=== PATIENT | female | born 1945 | race Caucasian/White ===

== ENCOUNTER 2016-12-22 09:03 | Outpatient (CLI) | payer MEDICARE, OTHER ==
[~2016-12-22] VITALS: Ht 160 cm; Wt 80.9 kg
--- NOTE | ~2016-12-22 | OP ---
PATIENT NAME: KRISTI TORRES MEDICAL RECORD: [id number] :45 LOCATION:D.[facility] ADMISSION DATE: SURGEON: SALMA FERNANDES MD DATE OF OPERATION: 12/22/2016 DATE OF SERVICE: 12/22/2016 PROCEDURES: 1. Left heart catheterization. 2. Selective coronary angiography. 3. Left ventriculogram. INDICATION: Chest pain compatible with angina, coronary artery disease, previous coronary angioplasty. PROCEDURE: After informed consent was obtained and after detailed explanation of risks, benefits as well as alternative therapies, the patient elected to proceed with angiogram and angioplasty. The right radial area was prepped and draped in normal sterile fashion. The right radial artery was cannulated via modified Seldinger technique with placement of 6-Turkmen sheath. All catheters exchanged through this sheath. FINDINGS: Left ventriculogram was performed in the standard 30-degree HAILE view reveals good cardiac wall motion throughout all segments. Overall ejection fraction estimated 60%. SELECTIVE CORONARY ANGIOGRAPHY: 1. Left main showed no significant angiographic disease. 2. Left anterior descending has moderate irregularities, but no flow-limiting stenosis. 3. The left circumflex shows moderate irregularities, but no flow-limiting stenosis. 4. The right coronary has previously placed stent that is widely patent with no significant restenosis. No disease elsewise. OVERALL IMPRESSION: No significant restenosis of the previously placed stent. No disease elsewise. Continue medical management of the coronary artery disease and cardiac risk factors. TRANSINT:[id number] Voice Confirmation ID: [id number] DOCUMENT ID: [id number] SALMA FERNANDES MD CC: [id number] DICTATION DATE: 12/22/16 1352 EDGER TECHNICIAN: 12/22/16 2342 DEP CLI 12/22/16 [facility] [address] [place] [address]
--- NOTE | ~2016-12-22 | HEMODYNAMI ---
PATIENT:KRISTI TORRES MEDICAL RECORD: [id number] : 45 LOCATION:[facility] ADMISSION DATE: 12/22/16 Generatedon:12/22/201613:52 Patient name: KRISTI TORRES Patient #: [id number] SSN: : 1945 Date of study: 12/22/2016 Page: Of Hemodynamic Procedure Report Patient Data Patient Demographics Procedure consent was obtained First Name: KRISTI Gender: Female Last Name: MELISSA : 1945 [facility] Initial: LEAH Age: 71 year(s) Patient #: [id number] Race: Additional ID: [id number] Contact details Address: [address] State: [place] City: [place] Zip code: [address] Past Medical History Allergies Allergen Reaction Date Comments Reported Iodine 12/13/2015 Aspirin 12/13/2015 Admission Admission Data Admission Date: 12/22/2016 Admission Time: 9:03 Lab Results Lab Result Date: 12/22/2016 Lab Result Time: 0:00 Biochemistry Name Units Result Min Max BUN mg/dl 18 --(---*)-- 7 18 Creatinine mg/dl 0.7 --(*---)-- 0.6 1.3 CBC Name Units Result Min Max Hemoglobin g/dl 13 -*(----)-- 13.5 17.5 Procedure Procedure Types Cath Procedure Diagnostic Procedure LHC [facility] w/Coronaries Miscellaneous Procedures Moderate Sedation up to 30 minutes Procedure Description Procedure Date Procedure Date: 12/22/2016 Procedure Start Time: 13:39 Procedure End Time: 13:51 Procedure Staff Name Function Marcin Cheng MD Performing Physician Jose Delgado RT Scrub Alanna Trimble RN Nurse Eulogio Aguirre RT Monitor Procedure Data Cath Procedure Fluoroscopy Diagnostic fluoroscopy Total fluoroscopy Time: 0.7 time: 0.7 min min Contrast Material Contrast Material Type Amount (ml) Isovue 300 45 Entry Location Entry Primary Successful Side Size Upsize Upsize Entry Closure Lewis ccessful Closure Location (Fr) 1 (Fr) 2 (Fr) Remarks Device Remarks Radial Right 6 Fr Mechanical artery Short Compression Diagnostic catheters Device Type Used For End Catheter Placement Terumo 5Fr [place] 110cm LV Angiography catheter Procedure Complications No complications Procedure Medications Medication Administration Route Dosage Oxygen NC 2 l/min Heparin Flush Bag added to field 2 bags (1000units/500ml NS) Lidocaine 2% added to field 20 Radial Cocktail added to field 1 syringe (Verapomil 2mg/Nitro 400mcg/Heparin 1500units) Pepcid I.V. 20 mg Solumedrol I.V. 125 mg Versed I.V. 1 mg Fentanyl I.V. 50 mcg Versed I.V. 1 mg Fentanyl I.V. 50 mcg Versed I.V. 1 mg Fentanyl I.V. 50 mcg Versed I.V. 1 mg Fentanyl I.V. 50 mcg Radial Cocktail I.A. 1 syringe (Verapomil 2mg/Nitro 400mcg/Heparin 1500units) Fentanyl I.V. 50 mcg Hemodynamics Rest HGB: 13 (g/dl) Heart Rate: 66 (bpm) Snapshots Pre Cath Intra NCS Post Cath Vital Signs Time Heart Resp SPO2 NIBP (mmHg) Rhythm Pain Sedation Rate (ipm) (%) Status Level (bpm) 12:55:46 66 16 97 153/76(121) NSR 0 (11) 10(A) , No pain 13:00:08 67 15 98 157/80(130) NSR 0 (11) 10(A) , No pain 13:04:26 62 16 96 137/73(109) NSR 0 (11) 10(A) , No pain 13:08:42 62 19 98 127/65(103) NSR 0 (11) 10(A) , No pain 13:12:56 62 30 97 133/71(92) NSR 0 (11) 10(A) , No pain 13:17:14 63 17 97 125/68(89) NSR 0 (11) 10(A) , No pain 13:21:28 62 16 97 123/66(88) NSR 0 (11) 10(A) , No pain 13:25:44 65 17 97 120/65(85) NSR 0 (11) 10(A) , No pain 13:30:00 64 16 96 117/57(83) NSR 0 (11) 10(A) , No pain 13:34:16 63 16 97 95/58(75) NSR 0 (11) 10(A) , No pain 13:38:22 65 16 97 93/59(77) NSR 0 (11) 9(A) , No pain 13:42:28 62 15 95 108/60(83) NSR 0 (11) 9(A) , No pain 13:46:38 65 17 95 87/47(62) NSR 0 (11) 9(A) , No pain 13:49:46 65 17 92 88/51(62) NSR 0 (11) 9(A) , No pain Medications Time Medication Route Dose Verified Delivered Reason Notes Effectiveness by by 12:56:48 Oxygen NC 2 l/min Marcin Alanna Per Skylar Tirmble RN physician 12:56:56 Heparin Flush added 2 bags Marcinabdulaziz Burch used for Bag to Skylar Cheng MD procedure (1000units/500ml field NS) 12:57:04 Lidocaine 2% added 20ml Marcinabdulaziz Burch used for to vial Skylar Cheng MD procedure field 12:57:10 Radial Cocktail added 1 Marcin Marcin used for (Verapomil to syringe Skylar Cheng MD procedure 2mg/Nitro field 400mcg/Heparin 1500units) 13:10:30 Pepcid I.V. 20 mg Marcin Alanna Per Skylar Trimble RN physician 13:10:39 Solumedrol I.V. 125 mg Marcin Alanna Per Skylar Trimble RN physician 13:30:27 Versed I.V. 1 mg Marcin Alanna for sedation Skylar Trimble RN 13:30:34 Fentanyl I.V. 50 mcg Marcin Alanna for sedation Skylar Trimble RN 13:32:30 Versed I.V. 1 mg Marcin Alanna for sedation Skylar Trimble RN 13:32:35 Fentanyl I.V. 50 mcg Marcin Alanna for sedation Skylar Trimble RN 13:34:30 Versed I.V. 1 mg Marcin Alanna for sedation Skylar Trimble RN 13:34:36 Fentanyl I.V. 50 mcg Marcin Alanna for sedation Tauth MD Florissant RN 13:37:45 Versed I.V. 1 mg Marcin Alanna for sedation Skylar Trimble RN 13:37:48 Fentanyl I.V. 50 mcg Marcin Niecca for sedation Skylar Trmible RN 13:40:17 Fentanyl I.V. 50 mcg Marcin Alanna for sedation Skylar Trimble RN 13:44:05 Radial Cocktail I.A. 1 Marcin Burch for (Verapomil syringe Skylar Cheng MD vasodilation 2mg/Nitro 400mcg/Heparin 1500units) Procedure Log Time Note 12:33:49 ACC Patient presents with Stable Angina CCS Anginal Class 2--Slight limitation of ordinary activity. 12:33:51 Diagnostic Cath status Elective 12:33:53 Jose MORIN(R) sent for patient. Start room use. 12:33:55 Time tracking: Regular hours 12:34:00 Plan of Care:Hemodynamics will remain stable., Cardiac rhythm will remain stable., Comfort level will be maintained., Respiratory function will remain adequate., Patient/ family verbilizes understanding of procedure., Procedure tolerated without complication., Recovers from procedure without complications.. 12:49:23 Patient received from Pre/Post Procedure Room to [facility] 2 Alert and oriented. Tansferred to table in Supine position. 12:49:24 Warm blankets applied, and chen hugger turned on for patient comfort. 12:49:24 Correct patient and procedure confirmed by team. 12:49:26 Signed procedure consent form obtained from patient. 12:49:30 ECG and BP/O2 sat monitors applied to patient. 12:54:35 Vital chart was started 12:56:48 Oxygen 2 l/min NC was administered by Alanna Trimble RN; Per physician; 12:56:56 Heparin Flush Bag (1000units/500ml NS) 2 bags added to field was administered by Marcin Cheng MD; used for procedure; 12:57:04 Lidocaine 2% 20ml vial added to field was administered by Marcin Cheng MD; used for procedure; 12:57:10 Radial Cocktail (Verapomil 2mg/Nitro 400mcg/Heparin 1500units) 1 syringe added to field was administered by Marcin Cheng MD; used for procedure; 13:00:05 Baseline sample Acquired. 13:00:09 Rhythm: sinus rhythm 13:00:10 Full Disclosure recording started 13:01:49 H&P Date Dictated: 12/20/2016 Within 30 days and on chart., H&P Addendum completed by physician on day of procedure. (MUST COMPLETE FOR ALL OUTPATIENTS). 13:01:50 Pre-procedure instructions explained to patient. 13:01:51 Pre-op teaching completed and patient verbalized understanding. 13:01:53 Family in waiting room. 13:07:59 Is the patient allergic to Iodine/contrast media? Yes. 13:08:04 Was the patient premedicated? Yes 13:08:08 Is patient on blood thinner?No 13:08:21 Patient diabetic? No. 13:08:22 ----Pre-sedation anethsthesia assessment.---- 13:08:25 Previous problem with sedation/anesthesia? No ? 13:08:27 Snore? Yes 13:08:28 Sleep apnea? No 13:08:29 Deviated septum? No 13:08:30 Opens mouth fully? Yes 13:08:32 Sticks out tongue? Yes 13:08:35 Airway obstruction? No ? 13:08:39 Dentures? Yes in tight 13:08:43 Pre procedure: right dorsailis pedis pulse 1+ Palpable, but thready & weak; easily obliterated 13:08:57 Modified Miguelangel's test Ulnar < 7 seconds 13:10:30 Pepcid 20 mg I.V. was administered by Alanna Trimble RN; Per physician; 13:10:39 Solumedrol 125 mg I.V. was administered by Alanna Trimble RN; Per physician; 13:12:40 Patient pain scale 0/10 ?. 13:12:45 IV patent on arrival in left hand with 0.9% NaCl at 10ml/hr. 13:13:18 Patient NPO since Midnight. 13:14:10 Lab Result : BUN 18 mg/dl 13:14:10 Lab Result : Creatinine 0.7 mg/dl 13:14:10 Lab Result : Hemoglobin 13 g/dl 13:14:13 Lab results completed and on chart. 13:14:16 Right Radial & Right Groin area was prepped with chlora-prep and draped in sterile fashion 13:14:17 Alarms reviewed by RIsabela N. 13:14:17 Sharps counted by scrub and verified by R.N. 13:28:05 Zero performed for pressure channel P1 13::27 Use device set Radial Dx 13::28 Acist Syringe opened to sterile field. 13::28 Medline Cath Pack opened to sterile field. 13:28:28 Bag Decanter opened to sterile field. 13:28:29 Terumo 6Fr Slender Glidesheath opened to sterile field. 13:28:30 St Jarred 260cm J .035 wire opened to sterile field. 13:28:30 Acist Hand Control opened to sterile field. 13:28:30 Acist Manifold opened to sterile field. 13:28:31 Tegaderm 4 x 4 opened to sterile field. 13::31 MBrace Wrist Support opened to sterile field. 13:30:14 --------ALL STOP TIME OUT------ 13:30:14 Final Timeout: patient, procedure, and site verified with staff and physician. All members of the team are in agreement. 13:30:16 Right Radial & Right Groin site verified by team. 13:30:18 Physical assessment completed. ASA score P 2 - A patient with mild systemic disease as per Marcin Cheng MD. 13:30:22 Sedation plan: IV Moderate Sedation Versed, Fentanyl 13:30:27 Versed 1 mg I.V. was administered by Alanna Trimble RN; for sedation; 13:30:34 Fentanyl 50 mcg I.V. was administered by Alanna Trimble RN; for sedation; 13:32:30 Versed 1 mg I.V. was administered by Alanna Trimble RN; for sedation; 13:32:35 Fentanyl 50 mcg I.V. was administered by Alanna Trimble RN; for sedation; 13:34:30 Versed 1 mg I.V. was administered by Alanna Trimble RN; for sedation; 13:34:36 Fentanyl 50 mcg I.V. was administered by Alanna Trimble RN; for sedation; 13:37:45 Versed 1 mg I.V. was administered by Alanna Trimble RN; for sedation; 13:37:48 Fentanyl 50 mcg I.V. was administered by Alanna Trimble RN; for sedation; 13:39:10 Procedure started. 13:39:24 Local anesthetic to right radial artery with Lidocaine 2% by Marcin Cheng MD.INITIAL ACCESS ONLY 13:40:17 Fentanyl 50 mcg I.V. was administered by Alanna Trimble RN; for sedation; 13:40:54 A 6 Fr Short sheath was inserted into the Right Radial artery 13:44:02 A Terumo 5Fr [place] 110cm catheter was advanced over the wire and used for LV Angiography. 13:44:05 Radial Cocktail (Verapomil 2mg/Nitro 400mcg/Heparin 1500units) 1 syringe I.A. was administered by Marcin Cheng MD; for vasodilation; 13:44:05 LV angiography performed. 13:44:07 LV gram done using HAILE 13:44:10 Injector settings: Ml/sec: 7, Volume: 15, 13:45:00 EF : 60 % 13:45:07 LCA angiography performed. 13:46:04 RCA angiography performed. 13:46:05 Catheter removed. 13:46:12 Contrast amount:Isovue 300 45ml. 13:46:20 Terumo TR Band Standard opened to sterile field. 13:48:48 Sheath removed intact; hemostasis achieved with Mechanical Compression to the Right Radial artery. 13:48:50 Procedure ended.(Physican Out) 13:48:54 Fluoroscopy time 00.70 minutes. 13:49:08 Sharps counted by scrub and verified by R.N. 13:49:10 TR band inflated with 12cc of air. 13:49:11 Insertion/operative site no bleeding no hematoma. 13:49:16 Post right radial artery:stable, clean and dry 13:49:25 Post Procedure Pulses reassessed and unchanged 13:49:28 Post-procedure physical assessment completed. ASA score P 2 - A patient with mild systemic disease as per Marcin Cheng MD. 13:49:31 Post procedure rhythm: unchanged. 13:50:05 Post procedure instruction explained to patient.Patient verbalizes understanding. 13:50:24 Procedure and supply charges have been captured, reviewed, submitted and are correct. 13:50:37 Procedure type changed to Cath procedure, Diagnostic procedure, LHC, LHC w/Coronaries, Miscellaneous Procedures, Moderate Sedation up to 30 minutes 13:51:07 Procedure Complication : No complications 13:51:09 Vital chart was stopped 13:51:09 See physician's report for complete and final results. 13:51:11 Report given to Pre/Post Procedure Room. 13:51:14 Patient transfered to Pre/Post Procedure Room with Stretcher. 13:51:16 Procedure ended. 13:51:16 Full Disclosure recording stopped 13:51:19 End room use (Document Last) Device Usage Item Name Manufacture Quantity Catalog Hospital Part Current Minimal Lot# / Number Charge Number Stock Stock Serial# Code Acist Acist 1 [id number] [id number] [id number] 080825 20 Syringe Medical [employer] Inc Medline Cardinal 1 [id number] 825177 84395 759692 5 Cath Pack Health Bag Microtek 1 2002S 347377 41856 738193 5 Decanter Medical Inc. Terumo 6Fr Terumo 1 [id number] 759401 249475 930255 [address] St Jarred 1 228494 460242 455648 165811 30 260cm J .035 wire Acist Hand Acist 1 64336 076655 915859 978391 5 Control Medical Systems Inc Acist Acist 1 53100 981950 244204 317775 5 Manifold Medical Systems Inc Tegaderm 4 3M 1 1626W 299629 271183 726679 5 x 4 MBrace Advanced 1 140-0250-00 455595 93772 925772 5 Wrist Vascular Support Dynamics Terumo 5Fr Terumo 1 40-4445 125707 529010 903545 5 [place] 110cm catheter Terumo TR Terumo 1 [id number] 045088 156480 878425 40 Band Standard Signature Audit [place] Stage Time Signature Unsigned Intra-Procedure 12/22/2016 Eulogio Aguirre 1:52:00 PM RT(R) Signatures Monitor : Eulogio Aguirre RT Signature : Date : Time : [facility] [address] [facility] [place] [address]
[~2016-12-22 09:03] MED LIST: ALEVE220 MG PO; BAYER CHEWABLE81 MG PO; CARDIZEM CD180 MG PO; CARDIZEM LA180 MG PO; CORDARONE200 MG PO; COZAAR100 MG PO; COZAAR25 MG; COZAAR50 MG PO; FEXOFENADINE H180 MG PO; FLAXSEED OIL1000 MG; FLAXSEED OIL1000 MG PO; FUROSEMIDE20 MG PO; IPRAT-ALBUT 0.5-3 ML UPD; LEVAQUIN500 MG PO; PEPCID40 MG PO; PLAVIX75 MG PO; PREDNISONE20 MG PO; PULMICORT0.5 MG/21 UPD; SINGULAIR10 MG PO; TOPROL XL25 MG; TOPROL XL25 MG PO; ULTRAM50 MG PO
[2016-12-22] MEDS ORDERED: LEVOTHYROXINE112 MCG PO (10:13)
[2016-12-22 10:23] VITALS: BP 157/53; Ht 160 cm; Wt 80.9 kg
[2016-12-22 11:01] LABS: BASOPHILS 0.4 % (0-2); EOSINOPHILS 4.5 % (0-7); HEMATOCRIT 41.1 % (36.0-48.0); IMMATURE GRANULOCYTES 1.1 % (0-5); LYMPHOCYTES 22.3 % (15-50); MCH 27.8 pg (26.0-34.0); MCHC 31.6 g/dL (31.0-37.0); MEAN PLATELET VOLUME 11.4 fL (7.4-10.4); MONOCYTES 12.6 % (2-11); NEUTROPHILS 59.1 % (40-80); RBC 4.67 10x6/uL (4.00-5.40); RDW 14.5 % (11.5-14.5); WBC 8.5 10x3/uL (4.8-10.8)
[2016-12-22 11:02] LABS: PLATELET COUNT 217 10x3/uL (130-400)
[2016-12-22 11:18] LABS: CALC OSMOLALITY 282 mosm/kg (275-300); CALCIUM 8.9 mg/dL (8.5-10.1); CARBON DIOXIDE 30.4 mmol/L (21.0-32.0); CHLORIDE - SERUM 107 mmol/L (98-107); CREATININE - SERUM 0.7 mg/dL (0.6-1.3); GLUCOSE 99 mg/dL (74-106); POTASSIUM - SERUM 3.6 mmol/L (3.5-5.1); SODIUM 141 mmol/L (136-145); UREA NITROGEN 18 mg/dL (7-18); eGFR NON AFRICAN AMERICAN 87 mL/min (90-120)
--- NOTE | 2016-12-22 14:00 | NUR ---
1400 RECIEVED TO ROOM VIA STRETCHER FROM [employer] WITH NO DISTRESS NOTED. TR BAND TO R/WRIST CDI NO BLEEDING NO HEMATOMA NOTED. VSS WITH BP TO CYCLE Q 15. FAMILY AT SIDE NSR RATE 64 CHEST PAIN DENIED
== END 2016-12-22 16:15 | disposition home or self-care (01) ==
LOC: D.CATH 09:03
PROVIDERS: Internal Medicine Interventional Cardiology
DX: I25.119 Atherosclerotic heart disease of native coronary artery with unspecified angina pectoris (principal); I48.0 Paroxysmal atrial fibrillation; I10 Essential (primary) hypertension; I08.0 Rheumatic disorders of both mitral and aortic valves; F17.200 Nicotine dependence, unspecified, uncomplicated; Z01.812 Encounter for preprocedural laboratory examination

== ENCOUNTER → 2017-02-07 10:11 | Day surgery (SDC) | payer MEDICARE, OTHER ==
[~2017-02-07] VITALS: Ht 160 cm; Wt 80.0 kg
[~2017-02-07 10:11] MED LIST changes: +AMOXICILLIN500 M1 PO; +LEVOTHYROXINE112 MCG PO; +PULMICORT0.5 MG/21 INH; +XOPENEX HFA15 GM INH
[2017-02-07 10:54] LABS: BASOPHILS 0.2 % (0-2); EOSINOPHILS 1.4 % (0-7); HEMATOCRIT 46.5 % (36.0-48.0); IMMATURE GRANULOCYTES 0.7 % (0-5); MCH 28.4 pg (26.0-34.0); MCHC 32.3 g/dL (31.0-37.0); MCV 87.9 fL (80.0-100.0); MONOCYTES 11.6 % (2-11); NEUTROPHILS 64.1 % (40-80); PLATELET COUNT 237 10x3/uL (130-400); RBC 5.29 10x6/uL (4.00-5.40); RDW 14.8 % (11.5-14.5); WBC 9.2 10x3/uL (4.8-10.8)
[2017-02-07 10:59] VITALS: BP 154/71; Ht 160 cm; Wt 80.0 kg
--- NOTE | 2017-02-07 14:33 | NUR ---
1348-PT ESCORTED OUT BY VOLUNTEER.
== END | disposition home or self-care (01) ==
LOC: D.OPS 10:11
PROVIDERS: Anesthesiology
DX: R10.13 Epigastric pain (principal); R12 Heartburn; K21.0 Gastro-esophageal reflux disease with esophagitis; I10 Essential (primary) hypertension; R19.4 Change in bowel habit; Z01.812 Encounter for preprocedural laboratory examination

== ENCOUNTER → 2017-02-12 08:09 | Outpatient (CLI) | payer MEDICARE, OTHER ==
[2017-02-07 10:59] VITALS: BMI 31.2
== END | disposition home or self-care (01) ==
LOC: D.RAD 08:09
DX: R93.5 Abnormal findings on diagnostic imaging of other abdominal regions, including retroperitoneum (principal)

== ENCOUNTER 2017-02-26 11:09 | Day surgery (SDC) | payer MEDICARE, OTHER ==
[~2017-02-26] VITALS: Ht 160 cm; Wt 77.7 kg
--- NOTE | ~2017-02-26 | OP ---
PATIENT NAME: KRISTI TORRES MEDICAL RECORD: [id number] :45 LOCATION:[facility] ADMISSION DATE: SURGEON: YOLIS KRISHNAN DO OPERATION DATE: 02/26/17 PROCEDURE: Colonoscopy with polypectomy and hemostasis as well as submucosal injection. INDICATIONS FOR PROCEDURE: History of colon polyps, change in bowel habits and generalized abdominal pain. SCOPE: Olympus video pediatric colonoscope. MEDICATIONS: Propofol 800 milligrams IV per anesthesia. WITHDRAWAL TIME: Greater than 30 minutes. ESTIMATED BLOOD LOSS: Less than 3 milliliters. COMPLICATIONS: None. FINDINGS: Informed consent was given. The patient was made comfortable with the above medication. After reaching an adequate level of sedation by slow IV push, the patient was placed on her left side. A digital rectal examination was performed and was normal. The endoscope was then advanced under direct visualization through the rectum to the cecum with visualization of the appendiceal orifice and neoterminal ileum where an anastomosis is. The scope was slowly withdrawn, and the mucosa was carefully examined. There were multiple polyps found on this examination and they were not all removed due to the significant amount of time spent removing what polyps could be taken at this time. In the cecum there were two polyps which were benign appearing and sessile. They measured approximately 3-5 millimeters in diameter. They were both removed with hot forceps. One of these sites was not stopping bleeding on its own so a single Endoclip was placed for hemostasis successfully. In the ascending colon there were three separate polyps. Two were benign and sessile appearing and measuring approximately 5 millimeters in diameter. They were both removed with hot forceps successfully. The final polyp was removed with a hot snare. It was a larger polyp which measured approximately 8 millimeters in size. One of these sites also required hemostasis with placement of a Hemoclip. This was done successfully. In the transverse colon there were two separate polyps. One was a smaller polyp measuring approximately 6 millimeters in size which was removed with hot forceps. The other polyp was a larger polyp measuring approximately 8 millimeters in size. It was removed with a hot snare. At this point, the procedure had been ongoing for 45 minutes or greater. Due to patient safety the procedure was terminated. She will be brought back for the remainder of her colonoscopy with polyp removal. Some of these polyps that were located in the transverse colon may be big enough that they will require further treatment outside of endoscopic therapy. This will be evaluated within the next one to two months when the patient returns. Tattoo was placed at approximately 60 centimeters where the extent of the procedure was terminated. IMPRESSIONS: 1. Multiple polyps as described above removed with various methods. 2. Incomplete removal of polyps at this time. PLAN/RECOMMENDATIONS: OPERATIVE REPORT [id number] KRISTI TORRES 1. Discharge home when recovery parameters are met. 2. Continue current medications. 3. Continue current diet. 4. Will schedule a follow up within one to two months for further removal of polyps. 5. The patient must stay off of all anti-inflammatories and blood thinning medications or anti-platelets for seven days for the next procedure. YOLIS KRISHNAN DO CC: [id number] DICTATION DATE: 02/26/17 1500 PERSONAL INJURY LAW SPECIALIST: HOMRE 02/27/17 1212 [facility] 02/26/17 [facility] [address] [place] [address]
[2017-02-26] MEDS ORDERED: PROTONIX40 MG PO (12:43)
[2017-02-26 12:54] VITALS: BP 107/51; Ht 160 cm; Wt 77.7 kg
[2017-02-26 13:21] LABS: BASOPHILS 0.2 % (0-2); EOSINOPHILS 0.4 % (0-7); HEMATOCRIT 45.8 % (36.0-48.0); HEMOGLOBIN 14.5 g/dL (12-16); IMMATURE GRANULOCYTES 0.6 % (0-5); LYMPHOCYTES 18.9 % (15-50); MCHC 31.7 g/dL (31.0-37.0); MCV 88.6 fL (80.0-100.0); MEAN PLATELET VOLUME 11.4 fL (7.4-10.4); MONOCYTES 10.2 % (2-11); NEUTROPHILS 69.7 % (40-80); PLATELET COUNT 190 10x3/uL (130-400); RBC 5.17 10x6/uL (4.00-5.40); RDW 15.2 % (11.5-14.5); WBC 9.3 10x3/uL (4.8-10.8)
[2017-02-26 13:38] LABS: CALC OSMOLALITY 275 mosm/kg (275-300); CALCIUM 9.2 mg/dL (8.5-10.1); CARBON DIOXIDE 24.1 mmol/L (21.0-32.0); CHLORIDE - SERUM 103 mmol/L (98-107); CREATININE - SERUM 0.8 mg/dL (0.6-1.3); GLUCOSE 83 mg/dL (74-106); POTASSIUM - SERUM 4.6 mmol/L (3.5-5.1); SODIUM 140 mmol/L (136-145); UREA NITROGEN 7 mg/dL (7-18); eGFR NON AFRICAN AMERICAN 75 mL/min (90-120)
--- NOTE | 2017-02-26 17:24 | NUR ---
1715 FULL LIQUID TRAY PROVIDED
--- NOTE | 2017-02-26 17:59 | NUR ---
1745 PIV DC W/CATHETER TIP INTACT TO WELL 1800 PT ESCORTED VIA WC OUT TO [facility] W/DAUGHTER DRIVING
== END 2017-02-26 18:00 | disposition home or self-care (01) ==
LOC: D.OPS 11:09
PROVIDERS: Anesthesiology
DX: K63.5 Polyp of colon (principal); D12.2 Benign neoplasm of ascending colon; D12.3 Benign neoplasm of transverse colon; Z86.010 Personal history of colon polyps; Z01.812 Encounter for preprocedural laboratory examination

== ENCOUNTER 2017-04-23 06:14 | Day surgery (SDC) | payer MEDICARE, OTHER ==
[~2017-04-23] VITALS: Ht 160 cm; Wt 78.2 kg
[~2017-04-23 06:14] MED LIST changes: +PROTONIX40 MG PO
[2017-04-23 07:09] LABS: HEMATOCRIT 41.7 % (36.0-48.0); HEMOGLOBIN 13.6 g/dL (12-16); MCH 28.6 pg (26.0-34.0); MCHC 32.6 g/dL (31.0-37.0); MCV 87.8 fL (80.0-100.0); MEAN PLATELET VOLUME 10.6 fL (7.4-10.4); RBC 4.75 10x6/uL (4.00-5.40); RDW 16.2 % (11.5-14.5); WBC 9.5 10x3/uL (4.8-10.8)
[2017-04-23 07:10] VITALS: BP 132/70; Ht 160 cm; Wt 78.2 kg
--- NOTE | 2017-04-24 07:19 | OP ---
PATIENT NAME: KRISTI TORRES MEDICAL RECORD: [id number] :45 LOCATION:[facility] ADMISSION DATE: SURGEON: YOLIS KRISHNAN DO DATE OF OPERATION: 04/23/2017 PROCEDURE: Colonoscopy with polypectomy. INDICATIONS FOR PROCEDURE: History of colon polyps, last procedure was performed in February of 2017 with multiple polyps removed and residual polyps left behind. SCOPE: Olympus video pediatric colonoscope. MEDICATIONS: Propofol 550 mg IV per anesthesia. WITHDRAWAL TIME: 23 minutes. ESTIMATED BLOOD LOSS: Minimal. COMPLICATIONS: None. FINDINGS: Informed consent was given. The patient was made comfortable with the above medication. After reaching an adequate level of sedation by slow IV push, the patient was placed on her left side. A digital rectal examination was performed and was normal. The endoscope was then advanced under direct visualization through the rectum to the cecum and neoterminal ileum where an anastomosis is present. The scope was slowly withdrawn and mucosa was carefully examined. In the cecal region, there were 3 separate polyps which were small and benign-appearing. They measured approximately 2-4 mm in diameter. They were all removed using hot forceps in 1 piece and completely retrieved. In the transverse colon, there were four separate polyps, 2 were smaller, measuring approximately 3-6 mm in diameter. They were removed using a hot snare in 1 piece and completely retrieved. There were 2 larger polyps measuring approximately a centimeter in size a piece. The first polyp was biopsied with hot forceps and removed in piecemeal resection with ablation of the remaining tissue. The second polyp was lifted in EMR fashion using a saline pillow with a hot snare with removal in piecemeal fashion. There are tattoo markings by both of these polyps for future reference. This was placed on the previous procedure. In the descending colon, there was a single polyp measuring approximately 9 mm in size. It was lifted in EMR fashion and removed using a hot snare. In the rectosigmoid junction, there was a single benign-appearing polyp measuring approximately 8 mm in size. It was removed using hot snare in 1 piece and completely retrieved. Retroflexion was performed in the rectum with normal appearance. The endoscope was then withdrawn from the patient. The patient tolerated the procedure well and there were no complications. IMPRESSION: Multiple polyps as described above removed with various methods. PLAN AND RECOMMENDATIONS: 1. Discharge home when recovery parameters are met. 2. Continue current diet and medications. 3. Follow up biopsy specimen results. 4. Anticipate a recall colonoscopy in 6 months for inspection for any residual tissue of the polyps removed today. After that procedure, the interval can likely be widened out to 2-3 years, if there is no residual tissue. OPERATIVE REPORT [id number] KRISTI TORRES TRANSINT:[id number] Voice Confirmation ID: [id number] DOCUMENT ID: [id number] YOLIS KRISHNAN DO at 0719 CC: [id number] DICTATION DATE: 04/23/17921 TRAINING COORDINATOR: 04/23/17 1516 [facility] 04/23/17 [facility] [address] [place] [address]
== END 2017-04-23 10:30 | disposition home or self-care (01) ==
LOC: D.OPS 06:14
PROVIDERS: Anesthesiology
DX: D12.0 Benign neoplasm of cecum (principal); D12.3 Benign neoplasm of transverse colon; D12.4 Benign neoplasm of descending colon; D12.7 Benign neoplasm of rectosigmoid junction; F17.200 Nicotine dependence, unspecified, uncomplicated; I25.10 Atherosclerotic heart disease of native coronary artery without angina pectoris; E03.9 Hypothyroidism, unspecified; J44.9 Chronic obstructive pulmonary disease, unspecified; I11.0 Hypertensive heart disease with heart failure; I50.9 Heart failure, unspecified

== ENCOUNTER 2017-09-10 17:38 | Inpatient (IN) | payer MEDICARE, OTHER ==
[~2017-09-10] VITALS: Ht 160 cm; Wt 83.6 kg
--- NOTE | ~2017-09-10 | OP ---
PATIENT NAME: KRISTI TORRES MEDICAL RECORD: [id number] :45 LOCATION:D.M2 D.2106 ADMISSION DATE:09/12/17 SURGEON: GILMER SIDDIQUI MD DATE OF OPERATION: 09/13/2017 SURGEON: Gilmer Siddiqui MD ANESTHESIA: General anesthesia by Judy Cui CRNA PREOPERATIVE DIAGNOSIS: Left proximal ureteral 1.3-cm stone with staghorn calculus in the left lower pole of the kidney. PROCEDURES: Cystoscopy, left percutaneous nephrolithotomy, left ureteroscopy, and stone extraction. FINDINGS: Radiodense renal stones. One large stone in the midureter. She has narrow infundibula which make entry in the calices difficult to impossible. SPECIMENS: Left ureteral 1.3-cm stone. COMPLICATIONS: None. BLOOD LOSS: Minimal. CLINICAL HISTORY: This is a 72-year-old female who came to the hospital with ongoing abdominal pain with nausea. On CT scan, she was found to have a 1.3-cm proximal ureteral stone causing hydronephrosis. She was also found to have a partial staghorn calculus which fills up a lot of the left lower pole bryn. There were some punctate stones on the right side which were nonobstructive. Her daughter has a kidney stone history also. The daughter has had PCNL in the past at [facility] to remove her kidney stones. The patient has not previously had symptomatic kidney stones. Because of the size of the stones, she was to have a percutaneous nephrolithotomy. Today, Dr. Newton tried to place an access into the lower pole of the left kidney through the stone collection and then down into the ureter for the access. However, because she does not have hydronephrosis now and she has very tight infundibula, he was unable to get the lower pole access. Therefore, a mid pole access was provided. I explained the situation to her daughter. I told her that I could get the ureteral stone today, but I was not certain that I could get the lower pole stones through this access. The patient already has cefepime IV from interventional radiology and therefore we did not give her any further antibiotics. PROCEDURE: The patient was in supine position. She was given general anesthetic on the stretcher. We put her legs in frogleg position and prepped her vaginally. A cystoscope was placed and the distal end of the nephroureteral access stent that had been placed by Dr. Newton was pulled out using grasping forceps so that it exited the urethra. This will allow our access wire to be clamped with a hemostat to prevent loss of access. Once the cystoscopy was performed, a Copeland catheter was inserted and put to bag drainage. The patient was then turned into the prone position on the Carmelo frame. All pressure points were padded. She was prepped and draped. Through the lumen of the nephroureteral catheter, we inserted an Amplatz Super Stiff wire. This was pushed down until it exited through the urethra between the legs. At this point, the circulating nurse put a hemostat on it. This prevented the wire from migrating backwards. The nephroureteral tube was removed completely and OPERATIVE REPORT [id number] KRISTI TORRES discarded. A dual lumen catheter was then inserted over the Super Stiff wire and placed into the proximal ureter. A second wire, which was a Sensor wire, was placed through the second lumen of the dual lumen catheter. This was put down into the bladder. Once it was in correct position, the dual lumen catheter was removed, leaving the wires in place. We clamped the Sensor wire to the drapes as it would act as our safety wire. We worked over the Super Stiff wire. A 1-cm incision was made on either side of the wire using a #15 blade. We then inserted the NephroMax balloon dilator. Under radiographic guidance, we put it down into the level of the renal pelvis. The balloon was then inflated with 20 atmospheres of pressure and then the working sheath, which is 30-Niuean in circumference, was placed over the balloon into the renal pelvis. The balloon was then completely deflated and removed entirely. We then put our scope down. Under fluoroscopy to identify the stone location, I tried to identify the infundibulum to the lower pole bryn. However, it was very difficult to find this entrance; and when I found a potential candidate, I could not get through it. I then placed the scope down the proximal ureter. We could not get down to the point at which the stone was lodged. We then switched to the flexible ureteroscope. This was actually the flexible cystoscope which we used for the proximal ureter as the renal pelvis and proximal ureter are hydronephrotic. This allowed us to go right down to the stone, which was lodged in the proximal ureter. We tried baskets of 1.9-Niuean, also the Kole device, and the Piranha graspers. None of these items were able to dislodge the stone. Finally, we put a 3-Niuean 0-tip basket distal to the stone. We then opened the basket and finally we were able to trap the stone within the wires of the basket. We closed the basket and we were able to entirely remove the ureteral stone. We repeated the ureteroscopy and no further stone material was seen in that area of the ureter. She did not have any further stones on CT either. I again tried with the flexible scope and the rigid nephroscope to try to find the infundibulum to the lower pole byrn, which contained a staghorn calculus, but again this was unsuccessful. We will have to bring her back on another day to remove the lower pole collection with a direct access into the lower pole. At this point, the scope was removed. Through the working sheath, we inserted a 24-Niuean Malecot nephrostomy tube. Once the Malecot was seen to be in the renal pelvis by fluoroscopic guidance, the safety wire was entirely removed. The working sheath was removed entirely. The Amplatz Super Stiff wire was entirely removed by having the circulating nurse pull the wire distally out through the urethra. The nephrostomy tube was sutured to the skin using a 2-0 nylon for a drain stitch. It was then put to bag drainage. Dressings of 4 x 4 gauze, an ABD pad, and tape were applied. The patient was awakened and brought to the recovery room. TRANSINT:[id number] Voice Confirmation ID: [id number] DOCUMENT ID: [id number] GILMER SIDDIQUI MD at 1634 CC: [id number] DICTATION DATE: 09/13/17 1308 ESTATE PLANNING ATTORNEY: 09/13/17 1402 ADM IN [facility] [address] [place] [address]
--- NOTE | ~2017-09-10 | HEMODYNAMI ---
PATIENT:KRISTI TORRES MEDICAL RECORD: [id number] : 45 LOCATION:[facility] D.2106 ADMISSION DATE: 09/12/17 Generatedon:09/13/20179:51 Patient name: KRISTI TORRES Patient #: [id number] SSN: : 1945 Date of study: 09/13/2017 Page: Of Hemodynamic Procedure Report Patient Data Patient Demographics Procedure consent was obtained First Name: KRISTI Gender: Female Last Name: MELISSA : 1945 [facility] Initial: LEAH Age: 72 year(s) Patient #: [id number] Race: Additional ID: [id number] Contact details Address: [address] State: [place] City: [place] Zip code: [address] Past Medical History Allergies Allergen Reaction Date Comments Reported Iodine 12/13/2015 Aspirin 12/13/2015 Admission Admission Data Admission Date: 09/12/2017 Admission Time: 16:24 Room #: 2106 Weight (lbs.): 177 Weight (kg.): 80.29 Procedure Procedure Types Cath Procedure Peripheral Cath Diagnostic Procedure Cath Peripheral Nephro Nephrostomy Tubes Procedure Description Procedure Date Procedure Date: 09/13/2017 Procedure Start Time: 8:41 Procedure Staff Name Function Patricia Wood RT Monitor Carlos Grier RT Scrub Yamel Samaniego RN Nurse Patricia Wood RT Bean Sprout Grower Eduardo Newton MD Performing Physician Procedure Data Cath Procedure Fluoroscopy Diagnostic fluoroscopy Total fluoroscopy Time: time: 16.8 min 16.8 min Diagnostic fluoroscopy Total fluoroscopy dose: 579 dose: 579 mGy mGy Contrast Material Contrast Material Type Amount (ml) Isovue 300 85 Procedure Medications Medication Administration Route Dosage Oxygen NC 3 l/min Lidocaine 1% added to field 20 Heparin Flush Bag added to field 1 bags (1000units/500ml NS) Benadryl I.V. 50 mg Solumedrol I.V. 125 mg Versed I.V. 1 mg Fentanyl I.V. 50 mcg Fentanyl I.V. 50 mcg Versed I.V. 1 mg Fentanyl I.V. 25 mcg Versed I.V. 0.5 mg Versed I.V. 0.5 mg Fentanyl I.V. 25 mcg unlisted medication 1 Hemodynamics Rest Heart Rate: 63 (bpm) Snapshots Pre Cath Intra NCS Post Cath Vital Signs Time Heart Resp SPO2 etCO2 NIBP (mmHg) Rhythm Pain Sedation Rate (ipm) (%) (mmHg) Status Level (bpm) 8:24:07 64 13 91 0 172/86(138) NSR 0 (11) 10(A) , No pain 8:28:15 73 17 96 46.3 140/89(133) NSR 0 (11) 10(A) , No pain 8:32:31 61 13 96 45.6 160/85(136) NSR 0 (11) 10(A) , No pain 8:36:53 61 14 100 46.3 152/76(126) NSR 0 (11) 10(A) , No pain 8:41:15 59 12 100 48.5 148/77(122) NSR 0 (11) 10(A) , No pain 8:45:33 57 12 100 50.8 127/76(96) NSR 0 (11) 10(A) , No pain 8:49:49 56 9 98 47.8 119/68(95) NSR 0 (11) 10(A) , No pain 8:53:55 57 9 98 49.3 116/66(96) NSR 0 (11) 10(A) , No pain 8:58:03 57 14 99 41.9 109/67(78) NSR 0 (11) 10(A) , No pain 9:02:13 57 13 100 48.5 122/64(99) NSR 0 (11) 10(A) , No pain 9:06:29 58 14 93 51.5 116/60(88) NSR 0 (11) 10(A) , No pain 9:10:39 60 9 93 69.5 125/70(96) NSR 0 (11) 10(A) , No pain 9:14:49 59 8 96 74 111/81(98) NSR 0 (11) 10(A) , No pain 9:18:56 58 15 93 50.8 102/69(85) NSR 0 (11) 10(A) , No pain 9:23:06 56 29 98 59.8 109/57(84) NSR 0 (11) 10(A) , No pain 9:27:16 55 15 98 56.1 102/62(78) NSR 0 (11) 10(A) , No pain 9:31:26 54 50 99 51.6 104/55(84) NSR 0 (11) 10(A) , No pain 9:35:36 55 27 98 51.6 112/60(88) NSR 0 (11) 10(A) , No pain 9:40:35 61 10 100 44.1 Measuring NSR 0 (11) 10(A) , No pain 9:40:37 61 10 100 44.1 130/76(104) NSR 0 (11) 10(A) , No pain 9:44:41 60 26 100 47.1 118/81(111) NSR 0 (11) 10(A) , No pain 9:48:55 58 39 100 43.3 136/62(99) NSR 0 (11) 10(A) , No pain Medications Time Medication Route Dose Verified Delivered Reason Notes Effec tiveness by by 8:17:30 Oxygen NC 3 Yamel Yamel used for l/min Aden Samaniego chief ophthalmic technician RN 8:17:49 Lidocaine 1% added 20ml Yamel Eduardo for local to vial Aden Newton MD anesthetic field RN 8:18:13 Heparin Flush added 1 Yamel Eduardo used for Bag to bags Aden Newton MD procedure (1000units/500ml field RN NS) 8:27:37 Benadryl I.V. 50 mg Aden Pierre RN, MD 8:27:46 Solumedrol I.V. 125 Eduardo Yamel mg Aden Newton RN, MD 8:46:07 Versed I.V. 1 mg Eduardo Montesinos for Aden Newton RN sedation 8:46:18 Fentanyl I.V. 50 Eduardo Montesinos for mcg Aden Newton RN sedation 9:15:31 Fentanyl I.V. 50 Eduardo Montesinos for mcg Aden Newton RN sedation 9:15:38 Versed I.V. 1 mg Eduardo Montesinos for Aden Newton RN sedation 9:21:52 Fentanyl I.V. 25 Eduardo Montesinos for mcg Aden Newton RN sedation 9:22:01 Versed I.V. 0.5 Eduardo Montesinos for mg Aden Newton RN sedation 9:48:56 Versed I.V. 0.5 Eduardo Montesinos for mg Aden Newton RN sedation 9:49:04 Fentanyl I.V. 25 Eduadro Montesinos for mcg Aden Newton RN sedation 9:49:38 cefepime iv 1gm Aden Pierre RN, MD Procedure Log Time Note 8:01:05 Patient Weight : 177 lbs 8:02:06 Use device set IR Diagnostic 8:02:30 KIT, INTRODUCER ACCUSTICK II W/C ([id number]) opened to sterile field. 8:02:31 CHIBA 22 X 15 needle opened to sterile field. 8:02:32 GLIDE WIRE Angled Super Stiff 180cm ([id number]) opened to sterile field. 8:02:33 Sterile Angiographic Pack opened to sterile field. 8:02:34 Bag Decanter (2002S) opened to sterile field. 8:02:41 Time tracking: Regular hours 8:02:49 Plan of Care:Hemodynamics will remain stable., Cardiac rhythm will remain stable., Comfort level will be maintained., Respiratory function will remain adequate., Patient/ family verbilizes understanding of procedure., Procedure tolerated without complication., Recovers from procedure without complications.. 8:03:11 Patient received from Med II to IR Alert and oriented. Tansferred to table in Prone position. 8:03:14 Correct patient and procedure confirmed by team. 8:03:16 Signed procedure consent form obtained from patient. 8:03:22 H&P Date Dictated: 09/13/2017 Within 30 days and on chart.. 8:03:25 Pre-procedure instructions explained to patient. 8:03:26 Pre-op teaching completed and patient verbalized understanding. 8:03:28 Family in waiting room. 8:03:32 Patient NPO since Midnight. 8:07:21 Is the patient allergic to Iodine/contrast media? Yes. 8:12:35 Was the patient premedicated? Yes 8:15:15 Patient diabetic? No. 8:15:17 8:15:21 ----Pre-sedation anethsthesia assessment.---- 8:15:27 Previous problem with sedation/anesthesia? No ? 8:15:34 Snore? No 8:15:37 Sleep apnea? No 8:15:39 Deviated septum? No 8:15:42 Opens mouth fully? Yes 8:15:44 Sticks out tongue? Yes 8:16:11 Airway obstruction? No ? 8:16:24 Dentures? No not in 8:16:49 IV patent on arrival in left forearm with 0.9% NaCl at [facility]. 8:17:02 8:17:30 Oxygen 3 l/min NC was administered by Yamel Samaniego RN; used for procedure; 8:17:49 Lidocaine 1% 20ml vial added to field was administered by Eduardo Newton MD; for local anesthetic; 8:18:13 Heparin Flush Bag (1000units/500ml NS) 1 bags added to field was administered by Eduardo Newton MD; used for procedure; 8:18:15 8:18:57 Left abdomen area was prepped with chlora-prep and draped in sterile fashion 8:19:06 8::49 ECG and BP/O2 sat monitors applied to patient. 8::50 Vital chart was started 8::52 Baseline sample Acquired. 8::54 Full Disclosure recording started 8::55 8::18 Alarms reviewed 8::26 Sharps counted by scrub and verified 8::42 8:27:37 Benadryl 50 mg I.V. was administered by Yamel Samaniego RN; ; 8:27:46 Solumedrol 125 mg I.V. was administered by Yamel Samaniego RN; ; 8:40:09 Physician arrived 8:41:11 --------ALL STOP TIME OUT------ 8:41:11 Final Timeout: patient, procedure, and site verified with staff and physician. All members of the team are in agreement. 8:41:24 Sedation plan: IV Moderate Sedation Medication:Versed, Fentanyl 8:41:30 Procedure started. 8:41:42 Local anesthetic to left renal area with Lidocaine 1% by Patricia Wood RT(R).INITIAL ACCESS ONLY 8:46:07 Versed 1 mg I.V. was administered by Yamel Samaniego RN; for sedation; 8:46:18 Fentanyl 50 mcg I.V. was administered by Yamel Samaniego RN; for sedation; 8:49:15 CHIBA 22 X 15 needle opened to sterile field. 8:52:30 NITINOL .018 80cm wire ([id number]) opened to sterile field. 8:56:02 CHIBA 22 X 15 needle opened to sterile field. 9:15:31 Fentanyl 50 mcg I.V. was administered by Yamel Samaniego RN; for sedation; 9:15:38 Versed 1 mg I.V. was administered by Yamel Samaniego RN; for sedation; 9:20:40 CHIBA 22 X 15 needle opened to sterile field. 9:21:52 Fentanyl 25 mcg I.V. was administered by Yamel Samaniego RN; for sedation; 9:22:01 Versed 0.5 mg I.V. was administered by Yamel Samaniego RN; for sedation; 9:31:39 KIT, INTRODUCER ACCUSTICK II W/C ([id number]) opened to sterile field. 9:39:06 GLIDE CATHETER 5FR ANGLED 65cm (CG507) opened to sterile field. 9:44:25 Procedure ended.(Physican Out) 9:45:29 Fluoroscopy time 16.80 minutes. 9:45:34 Fluoroscopy dose: 579 mGy 9:45:34 Flurop Dose total: 579 9:45:39 Contrast amount:Isovue 300 85ml. 9:45:41 Sharps counted by scrub and verified 9:46:05 Procedure and supply charges have been captured, reviewed, submitted and are correct. 9:48:56 Versed 0.5 mg I.V. was administered by Yamel Samaniego RN; for sedation; 9:49:04 Fentanyl 25 mcg I.V. was administered by Yamel Samaniego RN; for sedation; 9:49:38 cefepime 1gm iv was administered by Yamel Samaniego RN; ; 9:51:25 Vital chart was stopped Device Usage Item Name Manufacture Quantity Catalog Hospital Part Current Minimal Lot# / Number Charge Number Stock Stock Serial# Code KIT, [place] 2 [id number] [id number] 5 INTRODUCER Scientific ACCUSTICK II W/C ([id number]) CHIBA 22 X [employer] 4 [id number] 235063 5 [id number] 15 needle [id number] 2320156 [id number] GLIDE WIRE Terumo 1 [id number] 132530 682031 5 Angled Super Stiff 180cm (PC2581) Sterile Cardinal 1 [id number] 550505 260050 5 Angiographic Health Pack Bag Decanter Microtek 1 [id number] 39080 907065 5 () [employer] Inc. NITINOL .018 Ev3 1 [id number] 097468 236592 5 80cm wire ([id number]) GLIDE Terumo 1 CG507 439133 188316 5 CATHETER 5FR ANGLED 65cm (CG507) Signature Audit Saltese Stage Time Signature Unsigned Intra-Procedure 09/13/2017 Patricia Wood 9:51:22 AM RT(R) Signatures Monitor : Patricia Wood RT Signature : Date : Time : [place] [address] [facility] [address]
[2017-09-10 21:32] VITALS: BP 158/68
[2017-09-10 22:48] LABS: ALBUMIN 3.3 g/dL (3.4-5.0); BILIRUBIN - DIRECT 0.07 mg/dL (0.00-0.30); BILIRUBIN - INDIRECT 0.18 mg/dL (0.00-1.00); BILIRUBIN - TOTAL 0.25 mg/dL (0.2-1.3); PROTEIN - SERUM 6.7 g/dL (6.4-8.2)
[2017-09-11] VITALS: BP 130/76
[2017-09-11 06:05] VITALS: BP 128/66
[2017-09-11 06:26] LABS: BASOPHILS 0.2 % (0-2); EOSINOPHILS 2.5 % (0-7); HEMATOCRIT 40.8 % (36.0-48.0); HEMOGLOBIN 12.9 g/dL (12-16); IMMATURE GRANULOCYTES 0.5 % (0-5); LYMPHOCYTES 24.1 % (15-50); MCHC 31.6 g/dL (31.0-37.0); MCV 88.5 fL (80.0-100.0); MEAN PLATELET VOLUME 11.6 fL (7.4-10.4); MONOCYTES 12.9 % (2-11); NEUTROPHILS 59.8 % (40-80); PLATELET COUNT 216 10x3/uL (130-400); RBC 4.61 10x6/uL (4.00-5.40); RDW 14.4 % (11.5-14.5); WBC 8.1 10x3/uL (4.8-10.8)
[2017-09-11 06:34] LABS: ANION GAP 11.2 mmol/L (8-16); CALCIUM 7.9 mg/dL (8.5-10.1); CREATININE - SERUM 0.9 mg/dL (0.6-1.3); POTASSIUM - SERUM 3.2 mmol/L (3.5-5.1)
[2017-09-11 08:36] VITALS: BP 91/42
[2017-09-11 12:34] VITALS: BP 119/57
[2017-09-11 16:12] VITALS: BP 99/52
[2017-09-11 20:00] VITALS: BP 112/61
[2017-09-12] VITALS (7 sets, daily range): BP systolic 102–138; BP diastolic 49–63; BMI 29.6
[2017-09-12 05:59] LABS: BASOPHILS 0.4 % (0-2); HEMATOCRIT 40.2 % (36.0-48.0); HEMOGLOBIN 12.8 g/dL (12-16); IMMATURE GRANULOCYTES 0.8 % (0-5); LYMPHOCYTES 25.1 % (15-50); MCH 28.3 pg (26.0-34.0); MCHC 31.8 g/dL (31.0-37.0); MCV 88.7 fL (80.0-100.0); MEAN PLATELET VOLUME 11.6 fL (7.4-10.4); MONOCYTES 13.5 % (2-11); NEUTROPHILS 57.2 % (40-80); PLATELET COUNT 204 10x3/uL (130-400); RBC 4.53 10x6/uL (4.00-5.40); RDW 14.5 % (11.5-14.5); WBC 7.6 10x3/uL (4.8-10.8)
[2017-09-12 06:19] LABS: ANION GAP 10.8 mmol/L (8-16); CALCIUM 7.6 mg/dL (8.5-10.1); CARBON DIOXIDE 32.7 mmol/L (21.0-32.0); CREATININE - SERUM 0.8 mg/dL (0.6-1.3); POTASSIUM - SERUM 3.5 mmol/L (3.5-5.1)
[2017-09-13 05:05] VITALS: BP 101/45
[2017-09-13 06:19] LABS: BASOPHILS 0.4 % (0-2); EOSINOPHILS 3.6 % (0-7); HEMATOCRIT 38.9 % (36.0-48.0); HEMOGLOBIN 12.3 g/dL (12-16); IMMATURE GRANULOCYTES 0.4 % (0-5); LYMPHOCYTES 28.5 % (15-50); MCH 28.1 pg (26.0-34.0); MCHC 31.6 g/dL (31.0-37.0); MEAN PLATELET VOLUME 11.8 fL (7.4-10.4); MONOCYTES 15.9 % (2-11); NEUTROPHILS 51.2 % (40-80); PLATELET COUNT 212 10x3/uL (130-400); RBC 4.37 10x6/uL (4.00-5.40); RDW 14.4 % (11.5-14.5); WBC 7.3 10x3/uL (4.8-10.8)
[2017-09-13 06:31] LABS: INR 0.98 (0.85-1.17); PROTIME 12.6 SECONDS (11.6-15.0)
[2017-09-13 06:32] LABS: APTT 33.3 SECONDS (22.8-39.4)
[2017-09-13 06:43] LABS: ANION GAP 10.4 mmol/L (8-16); CALCIUM 8.1 mg/dL (8.5-10.1); CARBON DIOXIDE 29.3 mmol/L (21.0-32.0); CREATININE - SERUM 0.8 mg/dL (0.6-1.3); POTASSIUM - SERUM 3.7 mmol/L (3.5-5.1)
[2017-09-13 08:40] VITALS: BP 121/49
[2017-09-13 10:39] VITALS: Ht 160 cm; Wt 83.6 kg
[2017-09-13 12:42] VITALS: BP 144/66
[2017-09-13 13:42] VITALS: BP 132/64
[2017-09-13 20:00] VITALS: BP 107/49
[2017-09-14] VITALS: BP 107/50
[2017-09-14 04:00] VITALS: BP 104/49
[2017-09-14 04:56] LABS: BASOPHILS 0.1 % (0-2); EOSINOPHILS 0 % (0-7); HEMATOCRIT 38.1 % (36.0-48.0); HEMOGLOBIN 11.9 g/dL (12-16); IMMATURE GRANULOCYTES 0.4 % (0-5); LYMPHOCYTES 4.8 % (15-50); MCHC 31.2 g/dL (31.0-37.0); MCV 89.6 fL (80.0-100.0); MEAN PLATELET VOLUME 11.9 fL (7.4-10.4); MONOCYTES 6.9 % (2-11); NEUTROPHILS 87.8 % (40-80); PLATELET COUNT 210 10x3/uL (130-400); RBC 4.25 10x6/uL (4.00-5.40); RDW 14.6 % (11.5-14.5)
[2017-09-14 05:00] LABS: WBC 14.1 10x3/uL (4.8-10.8)
[2017-09-14 05:12] LABS: ANION GAP 10.7 mmol/L (8-16); CALCIUM 7.9 mg/dL (8.5-10.1); CARBON DIOXIDE 28.9 mmol/L (21.0-32.0); POTASSIUM - SERUM 3.6 mmol/L (3.5-5.1)
[2017-09-14 08:00] VITALS: BP 124/48
[2017-09-14 12:00] VITALS: BP 102/60
[2017-09-14 14:51] VITALS: BP 91/47
[2017-09-14 21:53] VITALS: BP 102/57
[2017-09-15 05:36] LABS: BASOPHILS 0.1 % (0-2); EOSINOPHILS 0.3 % (0-7); HEMATOCRIT 34.9 % (36.0-48.0); HEMOGLOBIN 11.1 g/dL (12-16); IMMATURE GRANULOCYTES 0.3 % (0-5); LYMPHOCYTES 12.5 % (15-50); MCH 28.6 pg (26.0-34.0); MCHC 31.8 g/dL (31.0-37.0); MCV 89.9 fL (80.0-100.0); MEAN PLATELET VOLUME 11.7 fL (7.4-10.4); NEUTROPHILS 74.8 % (40-80); PLATELET COUNT 203 10x3/uL (130-400); RBC 3.88 10x6/uL (4.00-5.40); RDW 14.7 % (11.5-14.5); WBC 13.9 10x3/uL (4.8-10.8)
[2017-09-15 05:37] LABS: ANION GAP 9.9 mmol/L (8-16); CALCIUM 7.7 mg/dL (8.5-10.1); CARBON DIOXIDE 33.4 mmol/L (21.0-32.0); POTASSIUM - SERUM 3.3 mmol/L (3.5-5.1)
[2017-09-15 05:40] VITALS: BP 102/40
[2017-09-15 08:57] VITALS: BP 93/41
[2017-09-15 11:08] LABS: APPEARANCE HAZY (CLEAR); COLOR PINK (YELLOW); SPECIFIC GRAVITY 1.005 (1.005-1.020)
[2017-09-15 11:09] LABS: BILIRUBIN NEGATIVE (NEGATIVE); GLUCOSE NEGATIVE (NEGATIVE); KETONE NEGATIVE (NEGATIVE); NITRITE NEGATIVE (NEGATIVE); PH 5.5 (5.0-6.0); PROTEIN 1+ mg/dL (NEGATIVE); UROBILINOGEN NORMAL (NORMAL)
[2017-09-15 11:12] LABS: BACTERIA FEW /hpf (NONE SEEN); EPITHELIAL CELLS RARE /hpf (0-5); RED CELLS - URINE >50 /hpf (0-5)
[2017-09-15 11:42] VITALS: BP 92/48
[2017-09-15 15:53] VITALS: BP 99/48
[2017-09-15 20:26] VITALS: BP 96/43
[2017-09-16 04:59] LABS: BASOPHILS 0.1 % (0-2); EOSINOPHILS 0 % (0-7); HEMATOCRIT 35.6 % (36.0-48.0); HEMOGLOBIN 11.3 g/dL (12-16); IMMATURE GRANULOCYTES 0.4 % (0-5); LYMPHOCYTES 8.6 % (15-50); MCH 28.1 pg (26.0-34.0); MCHC 31.7 g/dL (31.0-37.0); MCV 88.6 fL (80.0-100.0); MEAN PLATELET VOLUME 11.6 fL (7.4-10.4); NEUTROPHILS 80.9 % (40-80); PLATELET COUNT 205 10x3/uL (130-400); RBC 4.02 10x6/uL (4.00-5.40); RDW 14.5 % (11.5-14.5); WBC 10.9 10x3/uL (4.8-10.8)
[2017-09-16 05:04] LABS: ANION GAP 11.7 mmol/L (8-16); CALCIUM 8.3 mg/dL (8.5-10.1); CREATININE - SERUM 0.9 mg/dL (0.6-1.3); POTASSIUM - SERUM 3.7 mmol/L (3.5-5.1)
[2017-09-16 06:23] VITALS: BP 126/47
[2017-09-16 07:00] VITALS: BP 132/68
[2017-09-17 05:06] LABS: BASOPHILS 0.2 % (0-2); HEMATOCRIT 34.6 % (36.0-48.0); IMMATURE GRANULOCYTES 0.4 % (0-5); LYMPHOCYTES 17.4 % (15-50); MCH 28.2 pg (26.0-34.0); MCHC 31.8 g/dL (31.0-37.0); MCV 88.7 fL (80.0-100.0); MEAN PLATELET VOLUME 11.7 fL (7.4-10.4); MONOCYTES 12.7 % (2-11); NEUTROPHILS 68.3 % (40-80); PLATELET COUNT 202 10x3/uL (130-400); RDW 14.6 % (11.5-14.5); WBC 10.8 10x3/uL (4.8-10.8)
[2017-09-17] MEDS ORDERED: NORCO 7.5/325 T1 TA1 PO (08:13)
[2017-09-17 08:57] VITALS: BP 130/75
== END 2017-09-17 13:37 | disposition home or self-care (01) | DRG 660 ==
LOC: D.M2 17:38 → OBSVTIME 17:38 → D.SDCHOLD 17:38 → D.M2 18:56
PROVIDERS: Family Medicine; General Practice; Urology
PROC: 0TC18ZZ Extirpation of Matter from Left Kidney, Via Natural or Artificial Opening Endoscopic (ICD-10-PCS; 2017-09-13)
PROC: 0TC13ZZ Extirpation of Matter from Left Kidney, Percutaneous Approach (ICD-10-PCS; principal; 2017-09-13 09:00)
DX: N13.2 Hydronephrosis with renal and ureteral calculous obstruction (principal); I25.10 Atherosclerotic heart disease of native coronary artery without angina pectoris; I11.0 Hypertensive heart disease with heart failure; I50.9 Heart failure, unspecified; I48.0 Paroxysmal atrial fibrillation; I08.1 Rheumatic disorders of both mitral and tricuspid valves; Z86.73 Personal history of transient ischemic attack (TIA), and cerebral infarction without residual deficits; Z72.0 Tobacco use

== ENCOUNTER → 2017-10-04 07:29 | Outpatient (CLI) | payer MEDICARE, OTHER ==
[2017-09-13 10:39] VITALS: BMI 31.3
[~2017-10-04 07:29] MED LIST changes: +NORCO 7.5/325 T1 TA1 PO
== END | disposition home or self-care (01) ==
LOC: D.CT 07:29
DX: N20.0 Calculus of kidney (principal)

== ENCOUNTER 2017-10-15 05:40 | Day surgery (SDC) | payer MEDICARE, OTHER ==
--- NOTE | ~2017-10-15 | OP ---
PATIENT NAME: KRISTI TORRES MEDICAL RECORD: [id number] :45 LOCATION:[facility] ADMISSION DATE: SURGEON: YOLIS KRISHNAN DO DATE OF OPERATION: 10/15/2017 PROCEDURE: Colonoscopy with polypectomy and biopsy. INDICATIONS FOR PROCEDURE: Strong personal history of colon polyps with her last procedure being 04/23/2017. Previously, she had a colonoscopy in February of 2017 as well with multiple polyps removed on both of these procedures. SCOPE: Olympus video pediatric colonoscope. MEDICATIONS: Propofol IV per anesthesia. WITHDRAWAL TIME: 34 minutes. ESTIMATED BLOOD LOSS: Minimal. COMPLICATIONS: None. FINDINGS: Informed consent was given. The patient was made comfortable with the above medication. After reaching an adequate level of sedation by slow IV push, the patient was placed on her left side. A digital rectal examination was performed and was normal. The endoscope was then advanced under direct visualization through the rectum to the ileocolonic anastomosis. The endoscope was slowly withdrawn and mucosa was carefully examined. There were multiple polyps again on today's examination. There were 3 located in the ascending colon. They were all benign appearing and sessile, ranging in size from 3-5 mm in diameter. They were all removed in 1 piece using hot forceps and then completely retrieved. In the descending colon, there were 3 separate polyps. One was a smaller benign appearing sessile polyp measuring approximately 4 mm in diameter, which was removed with hot forceps. Two other polyps were mixed flat and sessile appearing polyp, which ranged in size from 6-8 mm in diameter. They were both removed using a hot snare in 1 piece and completely retrieved. In the rectum, there was another benign appearing sessile polyp, which measured approximately 4 mm in diameter, which was removed with hot forceps in 1 piece and completely retrieved. At the prior right ileocolonic anastomosis, there was some granulation tissue present. Two cold forceps biopsies were taken to submit to pathology. Retroflexion was performed in the rectum with grade I internal hemorrhoids present. The endoscope was then withdrawn from the patient. The patient tolerated the procedure well and there were no complications. IMPRESSION: 1. Multiple polyps as described above using a combination of hot forceps and hot snare. 2. Granulation tissue present at the ileocolonic anastomosis with a biopsy taken. 3. Prior tattoo was visualized on this examination. This was placed on the February of 2017 examination where 2 large polyps were removed. PLAN AND RECOMMENDATIONS: 1. Discharge home when recovery parameters are met. 2. Follow up biopsy specimen results. 3. Continue current diet. OPERATIVE REPORT [id number] KRISTI TORRES 4. Anticipate recall colonoscopy in 1 year. The patient will likely need repeat colonoscopies yearly until it is decided that she needs no further colonoscopies based on her strong history of polyps. TRANSINT:[id number] Voice Confirmation ID: [id number] DOCUMENT ID: [id number] YOLIS KRISHNAN DO at 0852 CC: [id number] DICTATION DATE: 10/15/17 0851 COMPUTATIONAL CHEMIST: 10/15/17 1058 [facility] 10/15/17 [place] [address] [place] [address]
[~2017-10-15 05:40] MED LIST changes: -COZAAR100 MG PO; +LOSARTAN POTASS25 MG PO
[2017-10-15 06:33] VITALS: BP 144/65; BMI 31.6
[2017-10-15 06:46] LABS: HEMATOCRIT 38.9 % (36.0-48.0); HEMOGLOBIN 12.8 g/dL (12-16); MCH 27.9 pg (26.0-34.0); MCHC 32.9 g/dL (31.0-37.0); MCV 84.9 fL (80.0-100.0); MEAN PLATELET VOLUME 11.1 fL (7.4-10.4); RBC 4.58 10x6/uL (4.00-5.40); RDW 14.5 % (11.5-14.5); WBC 7.2 10x3/uL (4.8-10.8)
[2017-12-11] MEDS ORDERED: PEPCID40 MG PO (09:45)
[2017-12-11] MEDS ORDERED: MELATONIN 3 MG1 TAB PO (09:47)
== END 2017-10-15 09:43 | disposition home or self-care (01) ==
LOC: D.OPS 05:40
PROVIDERS: Anesthesiology
DX: D12.2 Benign neoplasm of ascending colon (principal); D12.4 Benign neoplasm of descending colon; K62.1 Rectal polyp; F17.200 Nicotine dependence, unspecified, uncomplicated; I25.10 Atherosclerotic heart disease of native coronary artery without angina pectoris; E03.9 Hypothyroidism, unspecified; J44.9 Chronic obstructive pulmonary disease, unspecified; Z01.812 Encounter for preprocedural laboratory examination

== ENCOUNTER → 2017-10-17 14:30 | Outpatient (CLI) | payer MEDICARE, OTHER ==
[2017-10-15 06:33] VITALS: BMI 31.6
[~2017-10-17 14:30] MED LIST changes: +MELATONIN 3 MG1 TAB PO
[2017-10-17 16:01] LABS: BASOPHILS 0.3 % (0-2); EOSINOPHILS 0.9 % (0-7); HEMATOCRIT 40.4 % (36.0-48.0); HEMOGLOBIN 13.2 g/dL (12-16); IMMATURE GRANULOCYTES 0.3 % (0-5); MCH 28.4 pg (26.0-34.0); MCHC 32.7 g/dL (31.0-37.0); MEAN PLATELET VOLUME 11.3 fL (7.4-10.4); NEUTROPHILS 63.5 % (40-80); PLATELET COUNT 281 10x3/uL (130-400); RBC 4.65 10x6/uL (4.00-5.40); WBC 8.8 10x3/uL (4.8-10.8)
[2017-10-17 16:14] LABS: MCV 86.9 fL (80.0-100.0)
[2017-10-17 16:15] LABS: ANION GAP 15.2 mmol/L (8-16); CALCIUM 8.8 mg/dL (8.5-10.1); CARBON DIOXIDE 27.1 mmol/L (21.0-32.0); CREATININE - SERUM 0.8 mg/dL (0.6-1.3); POTASSIUM - SERUM 3.3 mmol/L (3.5-5.1)
[2017-10-17 16:15] LABS: APTT 32.8 SECONDS (22.8-39.4); INR 0.94 (0.85-1.17); PROTIME 12.2 SECONDS (11.6-15.0)
== END | disposition home or self-care (01) ==
LOC: D.OPS 14:30 → D.PAN 10-18 08:00 → D.RAD 10-18 08:00 → D.SDCHOLD 10-18 08:00 → EDSTATUS 10-18 08:00 → D.OPS 10-18 08:15
PROVIDERS: Anesthesiology
DX: N20.0 Calculus of kidney (principal); Z01.812 Encounter for preprocedural laboratory examination; Z01.810 Encounter for preprocedural cardiovascular examination; Z53.9 Procedure and treatment not carried out, unspecified reason

== ENCOUNTER 2017-12-12 06:00 | Inpatient (IN) | payer MEDICARE, OTHER ==
[2017-12-11 10:26] LABS: BASOPHILS 0.7 % (0-2); HEMATOCRIT 42.7 % (36.0-48.0); HEMOGLOBIN 13.9 g/dL (12-16); IMMATURE GRANULOCYTES 0.3 % (0-5); LYMPHOCYTES 25.8 % (15-50); MCH 28.5 pg (26.0-34.0); MCHC 32.6 g/dL (31.0-37.0); MCV 87.7 fL (80.0-100.0); MEAN PLATELET VOLUME 10.5 fL (7.4-10.4); NEUTROPHILS 56.2 % (40-80); PLATELET COUNT 245 10x3/uL (130-400); RBC 4.87 10x6/uL (4.00-5.40); RDW 15.6 % (11.5-14.5); WBC 7.6 10x3/uL (4.8-10.8)
[2017-12-11 10:33] LABS: INR 0.9 (0.85-1.17); PROTIME 11.8 SECONDS (11.6-15.0)
[2017-12-11 10:34] LABS: APTT 32.6 SECONDS (22.8-39.4)
[2017-12-11 10:46] LABS: CALC OSMOLALITY 284 mosm/kg (275-300); CALCIUM 8.6 mg/dL (8.5-10.1); CHLORIDE - SERUM 103 mmol/L (98-107); CREATININE - SERUM 0.7 mg/dL (0.6-1.3); GLUCOSE 98 mg/dL (74-106); POTASSIUM - SERUM 3.9 mmol/L (3.5-5.1); SODIUM 143 mmol/L (136-145); UREA NITROGEN 12 mg/dL (7-18); eGFR NON AFRICAN AMERICAN 87 mL/min (90-120)
[~2017-12-12] VITALS: Ht 160 cm; Wt 80.0 kg
--- NOTE | ~2017-12-12 | OP ---
PATIENT NAME: KRISTI TORRES MEDICAL RECORD: [id number] :45 LOCATION:D.[id number] ADMISSION DATE:12/12/17 SURGEON: GILMER SIDDIQUI MD DATE OF OPERATION: 12/12/2017 SURGEON: Gilmer Siddiqui MD ANESTHESIA: General anesthesia by Domingo Huff CRNA DIAGNOSIS: Left lower pole renal stones greater than 15 mm in collective size. PROCEDURE: Left percutaneous nephrolithotomy. FINDINGS: Radiodense lower pole stone collection with the largest stone being 12 mm in length. SPECIMENS: Renal stones. ESTIMATED BLOOD LOSS: 100 mL. CLINICAL HISTORY: This is a 72-year-old female who initially presented with acute right flank pain in August of this year. On CT scan, she was found to have a staghorn renal calculus in the left kidney and a 13-mm stone obstructing the left ureter. At that time, she had a left percutaneous nephrolithotomy and ureteroscopy to remove the impacted ureteral stone. I was able to clear out the renal pelvis stone as well as the ureteral stone. However, she has a large stone collection in the lower pole which I could not access with the mid pole access that she had at that time. The plan was to come back with the lower pole access and repeat percutaneous nephrolithotomy to completely clean out the stone burden from the kidney. In the interim, she had shingles and we had to wait until this cleared up. The shingles have been treated and they have cleared up and now she comes to have a percutaneous nephrolithotomy performed on the left side today. Earlier today, Dr. Newton performed a left nephroureteral access via lower pole access. He has left a nephroureteral catheter which extends from the skin of the back down through the kidney and down the ureter to the bladder. I will not be performing the percutaneous nephrolithotomy. SHE IS ALLERGIC TO CONTRAST DYE. We gave her Ancef home economics teacher to the OR. PROCEDURE: The patient was given induction of general anesthesia while she was in supine position. She was then put into the frog-leg position and prepped and draped. Cystoscopy was performed. The cystoscope was used to bring the distal end of the nephroureteral catheter out through the urethra. This was done using grasping forceps. This way, when we passed our wire down from above, we can clamp the wire beyond the urethra and prevent backward migration and loss of the access tract. The patient was then turned on to the prone position on the Carmelo frame. All pressure points were padded. She was then prepped and draped. The nephroureteral catheter was accessed by placing an Amplatz Super Stiff wire down. Once the wire was out through the urethra, the circulating nurse then applied a hemostat to the wire to prevent backwards migration. The nephroureteral catheter was removed through the skin of the back by completely pulling it out. A small incision was made on either side of the wire. Dual lumen catheter was then placed so that the proximal end was at the proximal ureter. Through the second lumen, we inserted a Sensor wire to act as a safety wire. Once the Sensor wire was in the bladder, the dual lumen catheter was removed, leaving the [address] The Sensor wire was clamped to the OPERATIVE REPORT [id number] KRISTI TORRES to act as a safety wire. We worked over the Super Stiff wire. The NephroMax tract dilation balloon was introduced over the Super Stiff wire. Once the radiopaque marker indicated that the tip was in the renal pelvis adjacent to the radiodense collection of stones that we could see, the balloon was inflated with 20 atmospheres of pressure using diluted contrast. Over the balloon, we inserted the 30-Malawian working sheath. The balloon was then deflated and completely removed. The nephroscope was introduced. Immediately, we could see small stone particles. These were removed using grasping forceps or the Cook Perc NCircle stone basket. Using fluoroscopic guidance, I could still see a large radiodense mass. We finally found the large stone, and using the Cook Perc NCircle, we were completely able to remove it. This eliminated most of the radiodensity. There was still some slivers of radiodensity found and looking in the lower pole calyx, we were able to find the remaining stones and completely remove them. The ultrasonic modality of the Anguillan lithoclast was also used to remove the remaining stone particles. At the end of the procedure, we could see no fluoroscopic radiodensities. We could also not see any further stone fragments when performing nephroscopy. The nephroscope was then removed. A 24-Malawian Malecot nephrostomy tube was inserted into the kidney through the working sheath. Once the Malecot nephrostomy tube was in correct position, the working sheath was removed entirely. The safety wire was entirely removed. The Super Stiff wire was removed by the circulating nurse, completely pulling it out of the patient through the urethra. The nephrostomy tube was sutured to the skin using 2-0 silk suture. The nephrostomy tube was put to bag drainage. A dressing of 4 x 4 gauze, ABD pad, and tape was applied to the nephrostomy tube site. The Copeland catheter that we had inserted after cystoscopy was removed. The patient will be admitted for pain management, and in a couple of days' time when the drainage from the nephrostomy tube is less bloody, she can go home with the nephrostomy tube. I will remove the nephrostomy tube next week. TRANSINT:[id number] Voice Confirmation ID: [id number] DOCUMENT ID: [id number] GILMER SIDDIQUI MD at 1331 CC: [id number] DICTATION DATE: 12/12/17 172 COMMUNICATIONS SYSTEMS ENGINEER: 12/12/17 1846 ADM IN [facility] [address] [place] [id number]
--- NOTE | ~2017-12-12 | HEMODYNAMI ---
PATIENT:KRISTI TORRES MEDICAL RECORD: [id number] : 45 [facility] [id number] ADMISSION DATE: 12/12/17 Generatedon:12/12/20179:00 Patient name: KRISTI TORRES Patient #: [id number] SSN: : 1945 Date of study: 12/12/2017 Page: Of Hemodynamic Procedure Report Patient Data Patient Demographics Procedure consent was obtained First Name: KRISTI Gender: Female Last Name: MELISSA : 1945 [facility] Initial: LEAH Age: 72 year(s) Patient #: [id number] Race: Additional ID: [id number] Contact details Address: [address] State: [place] City: [place] Zip code: [address] Past Medical History Allergies Allergen Reaction Date Comments Reported Iodine 12/13/2015 Aspirin 12/13/2015 Admission Admission Data Admission Date: 12/12/2017 Admission Time: 6:00 Room #: [facility] Procedure Procedure Types Cath Procedure Peripheral Cath Diagnostic Procedure Nephro Procedure Description Procedure Date Procedure Date: 12/12/2017 Procedure Start Time: 8:34 Procedure End Time: 8:59 Procedure Staff Name Function Eduardo Newton MD Performing Physician Olive Rubio RT Monitor Carlos Grier RT Scrub Rachna Turner RN Nurse Procedure Data Cath Procedure Fluoroscopy Diagnostic fluoroscopy Total fluoroscopy Time: 4.5 time: 4.5 min min Diagnostic fluoroscopy Total fluoroscopy dose: 147 dose: 147 mGy mGy Contrast Material Contrast Material Type Amount (ml) Isovue 300 25 Procedure Medications Medication Administration Route Dosage Lidocaine 1% added to field 20 Solumedrol I.V. 125 mg Benadryl I.V. 50 mg Fentanyl I.V. 50 mcg Versed I.V. 2 mg Heparin Flush Bag added to field 1 bags (1000units/500ml NS) Oxygen etCO2 Nasal cannula 4 l/min unlisted medication I.V. 1 g Fentanyl I.V. 50 mcg Hemodynamics Rest Pre Cath Intra NCS Post Cath Vital Signs Time Heart Resp SPO2 etCO2 NIBP (mmHg) Rhythm Pain Status Sedation Rate (ipm) (%) (mmHg) Level (bpm) 8:21:36 64 11 100 19.5 163/75(112) NSR 0 (11) , No 10(A) pain 8:26:02 64 13 100 17.3 155/73(114) NSR 0 (11) , No 10(A) pain 8:30:25 64 12 100 9.7 144/70(116) NSR 0 (11) , No 10(A) pain 8:34:47 63 14 100 3.7 135/62(97) NSR 0 (11) , No 8(A) pain 8:39:07 62 12 100 9.8 124/64(93) NSR 0 (11) , No 8(A) pain 8:43:21 62 12 100 13.5 111/54(87) NSR 2 (11) , 8(A) Uncomfortable 8:47:33 61 13 100 9 118/64(106) NSR 0 (11) , No 8(A) pain 8:51:51 61 10 100 7.5 110/53(84) NSR 0 (11) , No 8(A) pain 8:55:50 100 36.9 No Cuff NSR 0 (11) , No 8(A) pain Medications Time Medication Route Dose Verified Delivered Reason Notes Effect iveness by by 8:18:38 Lidocaine 1% added 20ml to vial field 8:21:17 Solumedrol I.V. 125 Eduardo Steenine Per mg Johnny Newton RN protocol 8:21:35 Benadryl I.V. 50 mg Eduardo Steenine Per Johnny Newton RN protocol 8:29:08 Heparin Flush added 1 Eduardo Steenine Per Bag to bags Johnny Newton RN protocol (1000units/500ml field NS) 8:30:02 Oxygen etCO2 4 Eduardo Steenine Per Nasal l/min Johnny Newton RN protocol cannula 8:34:12 Fentanyl I.V. 50 Eduardo Rachna for Mostly mcg Johnny Newton RN sedation sleeping @ 8:46:30 8:34:36 Versed I.V. 2 mg Eduardo Steenine for Mostly Johnny Newton RN sedation sleeping @ 8:46:33 8:37:31 cefepime I.V. 1g Eduardo Briscoe Per Johnny Newton RN protocol 8:46:20 Fentanyl I.V. 50 Eduardo Briscoe for Dozing mcg Johnny Newton RN sedation intermittently @ 8:51:03 Procedure Log Time Note 7:49:32 Carlos Grier RT (R) (CV) sent for patient. Start room use. 7:49:50 Time tracking: Regular hours (M-F 7:00 - 5:00) 7:49:56 Plan of Care:Hemodynamics will remain stable., Cardiac rhythm will remain stable., Comfort level will be maintained., Respiratory function will remain adequate., Patient/ family verbilizes understanding of procedure., Procedure tolerated without complication., Recovers from procedure without complications.. 7:55:22 Patient received from Outpatients to IR Alert and oriented. Tansferred to table in Prone position. 7:55:23 Correct patient and procedure confirmed by team. 7:55:30 Signed procedure consent form obtained from patient. 7:55:34 Full Disclosure recording started 7:55:34 7:55:39 H&P Date Dictated: 12/12/2017 H&P Addendum completed by physician on day of procedure. (MUST COMPLETE FOR ALL OUTPATIENTS). 7:55:42 Pre-procedure instructions explained to patient. 7:55:42 Pre-op teaching completed and patient verbalized understanding. 7:55:45 Family in waiting room. 7:55:51 Patient NPO since Midnight. 7:55:57 Is patient on blood thinner?No 7:55:59 Patient diabetic? No. 7:56:01 7:56:02 ----Pre-sedation anethsthesia assessment.---- 7:56:03 ----Pre-sedation anethsthesia assessment.---- 7:56:06 Previous problem with sedation/anesthesia? No ? 7:56:08 Snore? No 7:56:10 Sleep apnea? No 7:56:14 Deviated septum? No 7:56:16 Opens mouth fully? Yes 7:56:17 Sticks out tongue? Yes 7:56:19 Airway obstruction? No ? 7:56:22 Dentures? Yes out 7:56:24 7:56:27 Use device set IR Diagnostic 7:56:30 Tegaderm 4 x 4 (1626W) opened to sterile field. 7:56:30 Sterile Angiographic Pack opened to sterile field. 7:56:31 Bag Decanter (2002S) opened to sterile field. 7:56:46 Sharps counted by scrub and verified by R.N. 7:56:47 Alarms reviewed by R. N. 8:17:28 Is the patient allergic to Iodine/contrast media? Yes. 8:17:32 Was the patient premedicated? Yes. NURSE GAVE MED IN ROOM. 8:18:38 Lidocaine 1% 20ml vial added to field was administered by ; ; 8:20:33 Vital chart was started 8:21:17 Solumedrol 125 mg I.V. was administered by Rachna Turner RN; Per protocol; 8:21:35 Benadryl 50 mg I.V. was administered by Rachna Turner RN; Per protocol; 8:26:32 Patient pain scale 0/10 ?. 8:26:46 IV patent on arrival in right hand with 0.9% NaCl at [facility]. 8:27:22 Left Lumbar was prepped with chlora-prep and draped in sterile fashion. 8:29:08 Heparin Flush Bag (1000units/500ml NS) 1 bags added to field was administered by Rachna Turner RN; Per protocol; 8:30:02 Oxygen 4 l/min etCO2 Nasal cannula was administered by Rachna Turner RN; Per protocol; 8:30:43 Physician arrived 8:30:45 --------ALL STOP TIME OUT------ 8:32:46 CHIBA 22 X 15 needle opened to sterile field. 8:32:53 Final Timeout: patient, procedure, and site verified with staff and physician. All members of the team are in agreement. 8:33:18 Lumbar site verified by team. 8:33:28 Sedation plan: IV Moderate Sedation Medication:Versed, Fentanyl 8:33:42 Procedure started. 8:34:01 Local anesthetic to Lumbar area with Lidocaine 1% by Eduardo Newton MD.INITIAL ACCESS ONLY 8:34:12 Fentanyl 50 mcg I.V. was administered by Rachna Turner RN; for sedation; 8:34:36 Versed 2 mg I.V. was administered by Rachna Turner RN; for sedation; 8:34:47 GLIDE WIRE Angled Super Stiff 180cm ([id number]) opened to sterile field. 8:34:53 GLIDE CATHETER 5FR ANGLED 65cm (CG507) opened to sterile field. 8:35:21 KIT, INTRODUCER ACCUSTICK II W/C ([id number]) opened to sterile field. 8:37:31 cefepime 1g I.V. was administered by Rachna Turner RN; Per protocol; 8:38:23 NITINOL .018 80cm wire ([id number]) opened to sterile field. 8:41:07 Access was gained into lt kidney with 22x15 chibia needle 8:41:10 CHIBA 22 X 15 needle opened to sterile field. 8:42:57 A second chibia 22x15 needle is used to obtain more specific access. 8:44:37 Accustick II system is advanced. 8:46:20 Fentanyl 50 mcg I.V. was administered by Rachna Turner RN; for sedation; 8:46:30 Effectiveness of Fentanyl delivered @ 8:34:12 is: Mostly sleeping 8:46:33 Effectiveness of Versed delivered @ 8:34:36 is: Mostly sleeping 8:46:51 The glidewire is advanced into bladder, accustick removed. The glidecath is advanced over the wire into the lt kidney for access. Wire is removed. 8:47:02 [place] cath is left in left kidney for surgical access. 8:47:06 Procedure ended.(Physican Out) 8:48:52 Fluoroscopy time 04.50 minutes. 8:48:59 Flurop Dose total: 147 8:48:59 Fluoroscopy dose: 147 mGy 8:49:06 Contrast amount:Isovue 300 25ml. 8:49:08 Sharps counted by scrub and verified by R.N. 8:49:16 Insertion/operative site no bleeding no hematoma. 8:49:31 Post-op/insertion site Left Lumbar area dressed using a 4 x 4 and Tegaderm. 8:49:40 Post procedure instruction explained to patient.Patient verbalizes understanding. 8:49:41 Patient needs reinforcement of post procedure teaching. 8:49:45 Procedure and supply charges have been captured, reviewed, submitted and are correct. 8:51:03 Effectiveness of Fentanyl delivered @ 8:46:20 is: Dozing intermittently 8:58:59 See physician's report for complete and final results. 8:59:11 Report given to Outpatients. 8:59:19 Patient transfered to Outpatients with Stretcher. 8:59:30 Procedure ended. 8:59:30 Full Disclosure recording stopped 8:59:58 Vital chart was stopped Device Usage Item Name Manufacture Quantity Catalog Hospital Part Current Minimal Lot# / Number Charge Number Stock Stock Serial# Code Tegaderm 4 x 3M 1 1626W [id number] 5 4 (1626W) Sterile Cardinal 1 [id number] 151471 [id number] 5 Angiographic Health Pack Bag Decanter Microtek 1 [id number] 70682 886998 5 () [employer] Inc[employer] CHIBA 22 X Cook Medical 2 [id number] [id number] 5 [id number] 15 needle [id number] GLIDE WIRE Terumo 1 [id number] 010670 275829 5 Angled Super Stiff 180cm ([id number]) GLIDE Terumo 1 [id number] 354258 587918 5 CATHETER 5FR ANGLED 65cm (CG507) KIT, [place] 1 [id number] 020103 494504 5 INTRODUCER Scientific ACCUSTICK II W/C ([id number]) NITINOL .018 Medtronic 1 [id number] 224462 809364 5 80cm wire ([id number]) Signature Audit [place] Stage Time Signature Unsigned Intra-Procedure 12/12/2017 Olive 8:59:55 AM Ramiro MORIN (Terry) (CV) Signatures Monitor : Olive Signature : Ramiro RT Date : Time : [address] [place] [address]
--- NOTE | ~2017-12-12 | EC ---
PATIENT:KRISTI TORRES DATE OF SERVICE: 12/12/17 SEX: F MEDICAL RECORD: [id number] DATE OF : 45 LOCATION:D.[facility] AGE OF PATIENT: 72 ADMISSION DATE: 12/12/17 REFERRING PHYSICIAN: INTERPRETING PHYSICIAN: SALMA CHENG MD ECHOCARDIOGRAM REPORT ECHO CHARGES 4 ECHO COMPLETE Date: 12/14 CLINICAL DIAGNOSIS: HYPOTENSION ECHOCARDIOGRAPHIC MEASUREMENTS (adult normal given) AC root (d.<3.7cm) 2.7 cm LV Septum d (<1.2 cm> 1.7 cm Valve Excursion 1.9 cm LV Septum (systole) 2.3 cm Left Atria (s.<4.0cm> 4.7 cm LVPW d(<1.2cm) 1.4 cm RV (d.<2.3cm) 2.6 cm LVPW (sytole) 2.0 cm LV diastole(<5.6CM) 5.2 cm MV E-F(>70mm/sec) cm LV systole 2.2 cm LVOT Diameter 1.9 cm MV exc.(>10mm) cm Est.ejection fraction (50-75%) % DOPPLER: LVIT cm/sec A 46.0 cm/sec E 153 cm/sec LA cm/sec RVSP 45.0 mmHg LVOT 108 cm/sec AOP1/2T m/s Asc. Ao 166 cm/sec RVOT 68.0 cm/sec RA cm/sec PA 100 cm/sec AV Gradient Peak 11.1 mmHg AV Mean 4.5 mmHg AV Area 1.6 cm MV Gradient Peak 15.0 mmHg MV Mean 3.8 mmHg MV Area cm COMMENTS: Integrity Engineer: Sarah DENNISOE Sanitor: 1 Dr. Cheng TAPE# PACS Pericardial Effusion N DATE OF SERVICE: 12/14/2017 PROCEDURE: Echocardiogram. FINDINGS: 1. Left ventricle chamber size is within normal limits. Left ventricular systolic function is normal. Overall ejection fraction estimated at 60%. 2. Left atrium is enlarged at 4.7 cm. Right atrium and right ventricle chamber sizes are within normal limits. 3. Valvular structures have normal structure and motion. ECHOCARDIOGRAM REPORT [id number] KRISTI TORRES 4. Doppler interrogation reveals moderate aortic insufficiency, moderate mitral regurgitation, moderate tricuspid regurgitation, no other valvular insufficiency or stenosis. Pulmonary systolic pressure is elevated at 45 mmHg. 5. No evidence of pericardial effusion or left ventricular thrombus. TRANSINT:[id number] Voice Confirmation ID: [id number] DOCUMENT ID: [id number] SALMA CHENG MD at 1629 CC: [id number] DICTATION DATE: 12/15/17 0838 FOREIGN CLERK: 12/15/17 1148 DIS IN 12/15/17 [place] [id number] [place] [id number]
--- NOTE | ~2017-12-12 | CN ---
PATIENT NAME:KRISTI TORRES MEDICAL RECORD: [id number] : 45 LOCATION:D.MS [facility] ADMIT DATE: 12/12/17 ACCOUNT: [id number] CONSULTING PHYSICIAN: SATYA SINCLAIR MD REFERRING PHYSICIAN: CHRISTOPHE SIDDIQUI MD DATE OF CONSULTATION: 12/13/2017 REQUESTING PHYSICIAN: Christophe Siddiqui MD REASON FOR CONSULTATION: Medical management. HISTORY OF PRESENT ILLNESS: This is a 72-year-old female with a history of kidney stones. Dr. Siddiqui admitted her for removal of renal and ureteral staghorn stones. Dr. Lester has been her primary care physician and he is consulted for medical management including hypertension. Her blood pressure has actually been low and they have been battling with that all day with boluses, fluids, and holding her blood pressure medications. Currently, she is awake and alert and sitting up eating supper. PAST MEDICAL AND SURGICAL HISTORY: 1. Hypertension, renal stones, and ureteral stones. 2. Paroxysmal atrial fibrillation. 3. Strokes. 4. Hypothyroidism. 5. COPD. 6. Diverticulitis. 7. Coronary artery disease. 8. Trigeminal neuralgia. PAST SURGICAL HISTORY: Partial colectomy due to bleeding ulcers, appendectomy, hysterectomy. ALLERGIES: IODINE CONTRAST DYE. HOME MEDICATIONS: Lasix 20 mg at least once a day and sometimes twice, losartan 25 mg once a day, Pacerone 200 mg once a day, levothyroxine 112 mcg once a day, aspirin 81 mg once a day, Pepcid 40 mg once a day, melatonin 3 mg at bedtime. FAMILY HISTORY: Both parents with COPD. HABITS: The patient smokes. She drinks some alcohol. Denies illicit drug use. PHYSICAL EXAMINATION: VITAL SIGNS: Temperature 97.9, pulse 74, respirations 16, blood pressure 91/42, O2 sat 94% on 2 liters. GENERAL: She is sitting on the side of the bed, awake and alert, eating supper surrounded by family. She denies any problems except for some pain. HEENT: Grossly within normal limits. NECK: Supple. HEART: Regular rate and rhythm without murmur. LUNGS: Clear. ABDOMEN: Soft. BACK: She has nephrostomy tube on the left side in place. EXTREMITIES: Trace to 1+ edema. CONSULT REPORT [id number] KRISTI TORRES LABORATORY DATA: Today, CBC showed a white count of 8100, hemoglobin 11.1, hematocrit 34.8, platelets 220,000. ASSESSMENT: 1. Hypertension. 2. Kidney stones. 3. Ureteral stones. 4. Atrial fibrillation. PLAN: We will continue current care. We will hold blood pressure medications and amiodarone at this time, try to get her blood pressure up. We will monitor and continue IV fluids. Other tests or procedures as warranted. TRANSINT:[id number] Voice Confirmation ID: [id number] DOCUMENT ID: [id number] SATYA SINCLAIR MD at 1440 CC: [id number] DICTATION DATE: 12/13/171821 SECTION LEADER: 12/13/171951 ADM IN [facility] [address] [place] [id number]
[2017-12-12 06:36] VITALS: BP 119/55; BMI 31.7
[2017-12-12 18:43] VITALS: BP 97/64
[2017-12-12 18:43] LABS: BASOPHILS 0.1 % (0-2); EOSINOPHILS 0.4 % (0-7); HEMATOCRIT 40.7 % (36.0-48.0); HEMOGLOBIN 12.9 g/dL (12-16); IMMATURE GRANULOCYTES 0.7 % (0-5); LYMPHOCYTES 9.3 % (15-50); MCHC 31.7 g/dL (31.0-37.0); MCV 88.3 fL (80.0-100.0); MEAN PLATELET VOLUME 11.3 fL (7.4-10.4); MONOCYTES 1.5 % (2-11); PLATELET COUNT 220 10x3/uL (130-400); RBC 4.61 10x6/uL (4.00-5.40); RDW 15.4 % (11.5-14.5); WBC 8.1 10x3/uL (4.8-10.8)
[2017-12-12 20:54] VITALS: BP 86/41
[2017-12-13] VITALS (7 sets, daily range): BP systolic 81–115; BP diastolic 30–54; Ht 160 cm; Wt 80.0 kg
[2017-12-13 13:56] LABS: HEMATOCRIT 34.8 % (36.0-48.0); HEMOGLOBIN 11.1 g/dL (12-16)
[2017-12-14 05:00] VITALS: BP 108/53
[2017-12-14 09:07] VITALS: BP 134/60
[2017-12-14 11:04] LABS: BASOPHILS 0.2 % (0-2); EOSINOPHILS 0.4 % (0-7); HEMATOCRIT 32.2 % (36.0-48.0); HEMOGLOBIN 9.9 g/dL (12-16); IMMATURE GRANULOCYTES 0.4 % (0-5); LYMPHOCYTES 23.2 % (15-50); MCH 27.7 pg (26.0-34.0); MCHC 30.7 g/dL (31.0-37.0); MCV 89.9 fL (80.0-100.0); MEAN PLATELET VOLUME 10.7 fL (7.4-10.4); MONOCYTES 10.9 % (2-11); NEUTROPHILS 64.9 % (40-80); PLATELET COUNT 186 10x3/uL (130-400); RDW 16.4 % (11.5-14.5); WBC 9.9 10x3/uL (4.8-10.8)
[2017-12-14 11:06] LABS: RBC 3.58 10x6/uL (4.00-5.40)
[2017-12-14 11:26] VITALS: BP 135/72
[2017-12-14 11:30] LABS: ALBUMIN 2.7 g/dL (3.4-5.0); ALKALINE PHOSPHATASE 97 U/L (46-116); ALT (SGPT) 33 U/L (10-68); CALC OSMOLALITY 287 mosm/kg (275-300); CALCIUM 8.2 mg/dL (8.5-10.1); CARBON DIOXIDE 29.2 mmol/L (21.0-32.0); CHLORIDE - SERUM 109 mmol/L (98-107); CKMB 1.2 U/L (0.0-3.6); CREATININE - SERUM 0.8 mg/dL (0.6-1.3); GLUCOSE 109 mg/dL (74-106); POTASSIUM - SERUM 3.9 mmol/L (3.5-5.1); PROTEIN - SERUM 5.8 g/dL (6.4-8.2); SODIUM 144 mmol/L (136-145); TROPONIN-I < 0.017 ng/mL (0.000-0.060); UREA NITROGEN 12 mg/dL (7-18); eGFR NON AFRICAN AMERICAN 75 mL/min (90-120)
[2017-12-14 21:08] VITALS: BP 151/68
[2017-12-15 05:43] LABS: BASOPHILS 0.4 % (0-2); EOSINOPHILS 1.7 % (0-7); HEMATOCRIT 32.4 % (36.0-48.0); HEMOGLOBIN 9.9 g/dL (12-16); IMMATURE GRANULOCYTES 0.3 % (0-5); LYMPHOCYTES 22.3 % (15-50); MCH 27.4 pg (26.0-34.0); MCHC 30.6 g/dL (31.0-37.0); MCV 89.8 fL (80.0-100.0); MEAN PLATELET VOLUME 11.3 fL (7.4-10.4); MONOCYTES 12.1 % (2-11); NEUTROPHILS 63.2 % (40-80); PLATELET COUNT 192 10x3/uL (130-400); RBC 3.61 10x6/uL (4.00-5.40); RDW 16.3 % (11.5-14.5)
[2017-12-15 06:18] LABS: ANION GAP 9.9 mmol/L (8-16); CALCIUM 8.2 mg/dL (8.5-10.1); CARBON DIOXIDE 28.3 mmol/L (21.0-32.0); CREATININE - SERUM 0.9 mg/dL (0.6-1.3); POTASSIUM - SERUM 4.2 mmol/L (3.5-5.1)
[2017-12-15] MEDS ORDERED: NORCO 7.5/325 T1 TA1 PO (11:15)
[2017-12-15 11:50] VITALS: BP 123/61
[2017-12-21 11:21] LABS: CALCULI - CA OXALATE MONOHYDR 85 % (()); CALCULI - CALCIUM PHOSPHATE 10 % (()); CALCULI - COLOR Brown (()); CALCULI - WEIGHT 194.2 mg (())
== END 2017-12-15 13:24 | disposition home or self-care (01) | DRG 661 ==
LOC: D.SDCHOLD 06:00 → D.MS 06:00 → D.PAN 08:00 → EDSTATUS 08:00 → D.SDCHOLD 08:00 → D.RAD 08:00 → D.OPS 09:00 → D.MS 17:42
PROVIDERS: Anesthesiology; Family Medicine; General Practice; Internal Medicine; Urology
PROC: 0T9430Z Drainage of Left Kidney Pelvis with Drainage Device, Percutaneous Approach (ICD-10-PCS; 2017-12-12)
PROC: 0TC13ZZ Extirpation of Matter from Left Kidney, Percutaneous Approach (ICD-10-PCS; principal; 2017-12-12 08:00)
DX: N20.2 Calculus of kidney with calculus of ureter (principal); I10 Essential (primary) hypertension; I48.0 Paroxysmal atrial fibrillation; E03.9 Hypothyroidism, unspecified; J44.9 Chronic obstructive pulmonary disease, unspecified; I25.10 Atherosclerotic heart disease of native coronary artery without angina pectoris; F17.200 Nicotine dependence, unspecified, uncomplicated; I95.9 Hypotension, unspecified

== ENCOUNTER → 2018-03-29 17:16 | Outpatient (CLI) | payer MEDICARE, OTHER ==
[2017-12-13 06:37] VITALS: BMI 31.2
== END | disposition home or self-care (01) ==
LOC: D.CT 17:00
DX: R10.32 Left lower quadrant pain (principal)

== ENCOUNTER → 2018-12-06 08:52 | Outpatient (CLI) | payer MEDICARE, OTHER | END | disposition home or self-care (01) | LOC: D.RT 08:52 | DX: J44.9 Chronic obstructive pulmonary disease, unspecified (principal) ==

== ENCOUNTER 2018-12-20 09:00 | Outpatient (CLI) | payer MEDICARE, OTHER ==
[2017-12-13 06:37] VITALS: BMI 31.2
== END 2018-12-20 10:00 | disposition home or self-care (01) ==
LOC: D.MAMMO 09:00
PROVIDERS: ATTEND Family Medicine
DX: Z12.31 Encounter for screening mammogram for malignant neoplasm of breast (principal)

== ENCOUNTER 2019-01-14 22:28 | Observation (INO) | payer MEDICARE, OTHER ==
--- NOTE | ~2019-01-14 | HEMODYNAMI ---
PATIENT:KRISTI TORRES MEDICAL RECORD: [id number] : 45 LOCATION:[facility] D.2118 ADMISSION DATE: 01/14/19 Generatedon:01/15/201910:32 Patient name: KRISTI TORRES Patient #: [id number] SSN: : 1945 Date of study: 01/15/2019 Page: Of Hemodynamic Procedure Report Patient Data Patient Demographics Procedure consent was obtained First Name: KRISTI Gender: Female Last Name: MELISSA : 1945 [facility] Initial: LEAH Age: 73 year(s) Patient #: [id number] Race: Additional ID: [id number] Contact details Address: [address] [place], [place] [address] State: [place] City: [place] Zip code: [address] Past Medical History Allergies Allergen Reaction Date Comments Reported Iodine 12/13/2015 Aspirin 12/13/2015 Other allergy 01/15/2019 IODINE AND IODIDE CONTAINING PRODUCTS Admission Admission Data Admission Date: 01/14/2019 Admission Time: 23:34 Room #: D.2118 Weight (lbs.): 176.37 Weight (kg.): 80 Lab Results Lab Result Date: 01/15/2019 Lab Result Time: 0:00 Biochemistry Name Units Result Min Max BUN mg/dl 15 --(--*-)-- 7 18 Creatinine mg/dl 0.8 --(-*--)-- 0.6 1.3 CBC Name Units Result Min Max Hematocrit % 39.3 -*(----)-- 42 54 Hemoglobin g/dl 12.8 -*(----)-- 13.5 17.5 Procedure Procedure Types Cath Procedure Diagnostic Procedure [facility] ED w/Coronaries FFR/IVUS FFR Initial Intra-Coronary IVUS Initial Intra-Coronary IVUS Additional PCI Procedure Coronary Stent Coronary Stent Initial x2 Coronary Stent Additional Procedure Description Procedure Date Procedure Date: 01/15/2019 Procedure Start Time: 9:52 Procedure End Time: 10:29 Procedure Staff Name Function Marcin Cheng MD Performing Physician Violet Hernandez RT Scrub Jose Delgado RT Monitor Magalie Green RN Nurse Joo Sullivan RN Nurse Procedure Data Cath Procedure Fluoroscopy Diagnostic fluoroscopy Total fluoroscopy Time: 7.5 time: 7.5 min min Diagnostic fluoroscopy Total fluoroscopy dose: dose: 1158 mGy 1158 mGy Contrast Material Contrast Material Type Amount (ml) Isovue 370 101 Entry Location Entry Primary Successful Side Size Upsize Upsize Entry Closure Lewis ccessful Closure Location (Fr) 1 (Fr) 2 (Fr) Remarks Device Remarks Radial Right 6 Fr Mechanical artery Short Compression Estimated blood loss: 10 ml Procedure Complications No complications Procedure Medications Medication Administration Route Dosage 0.9% NaCl I.V. 100 ml/hr Oxygen etCO2 Nasal cannula 2 l/min Heparin Flush Bag added to field 2 bags (1000units/500ml NS) Lidocaine 2% added to field 20 Radial Cocktail added to field 1 syringe (Verapamil 2mg/Nitro 400mcg/Heparin 1500units) Versed I.V. 2 mg Fentanyl I.V. 100 mcg Radial Cocktail I.A. 1 syringe (Verapamil 2mg/Nitro 400mcg/Heparin 1500units) Heparin Bolus I.V. 4000 units Integrilin (Bolus I.V. 7.3 ml 2mg/ml) Integrilin (Bolus wasted 2.7 ml 2mg/ml) Plavix P.O. 600 mg Hemodynamics Rest HGB: 12.8 (g/dl) Heart Rate: 71 (bpm) Pressure Samples Time Site Value (mmHg) Purpose Heart Use Rate(bpm) 9:58 AO 121/62(86) Snapshot 64 Snapshots Pre Cath Intra NCS Post Cath Vital Signs Time Heart Resp SPO2 etCO2 NIBP (mmHg) Rhythm Pain Sedation Rate (ipm) (%) (mmHg) Status Level (bpm) 9:30:59 67 15 97 44.1 185/87(127) NSR 0 (11) 10(A) , No pain 9:35:29 66 18 98 35.8 176/85(133) NSR 0 (11) 10(A) , No pain 9:39:54 62 14 96 28.4 155/79(117) NSR 0 (11) 10(A) , No pain 9:44:14 61 13 96 38.9 143/67(117) NSR 0 (11) 10(A) , No pain 9:48:34 60 14 97 42.6 139/65(105) NSR 0 (11) 10(A) , No pain 9:52:52 59 12 96 35.8 132/69(105) NSR 0 (11) 10(A) , No pain 9:57:06 62 12 94 45.6 115/62(81) NSR 0 (11) 10(A) , No pain 10:01:20 63 12 95 41.9 119/67(93) NSR 0 (11) 10(A) , No pain 10:05:34 65 13 96 41.9 125/69(95) NSR 0 (11) 10(A) , No pain 10:09:50 64 15 96 41.1 134/72(108) NSR 0 (11) 10(A) , No pain 10:14:08 65 13 96 36.6 144/76(111) NSR 0 (11) 10(A) , No pain 10:18:30 65 15 98 47.8 147/68(96) NSR 0 (11) 10(A) , No pain 10:22:50 64 15 97 40.4 150/78(116) NSR 0 (11) 10(A) , No pain 10:26:50 0 No Cuff NSR 0 (11) 10(A) , No pain Medications Time Medication Route Dose Verified Delivered Reason Not es Effectiveness by by 9:32:41 0.9% NaCl I.V. 100 Joo Joo Per physician ml/hr Nate Sullivan RN RN 9:32:52 Oxygen etCO2 2 l/min Joo Joo for low 02 sats Nasal Lorigan Lorigan cannula RN RN 9:33:03 Heparin Flush added 2 bags Joo Joo used for Bag to Lorigan Lorigan procedure (1000units/500ml field CAICEDO RN NS) 9:33:17 Lidocaine 2% added 20ml Joo Joo for local to vial Lorigan Lorigan anesthetic field CAICEDO RN 9:33:31 Radial Cocktail added 1 Joo Joo used for (Verapamil to syringe Lorigan Lorigan procedure 2mg/Nitro field CAICEDO RN 400mcg/Heparin 1500units) 9:48:56 Versed I.V. 2 mg Joo Joo for sedation Nate Sullivan RN, RN 9:49:05 Fentanyl I.V. 100 mcg Joo Joo for sedation Nate Sullivan RN RN 9:54:15 Radial Cocktail I.A. 1 Joo Marcin for (Verapamil syringe Nate Cheng MD vasodilation 2mg/Nitro RN 400mcg/Heparin 1500units) 9:59:49 Heparin Bolus I.V. 4000 Joo Joo for units Nate Sullivan anticoagulation RN RN 10:06:42 Integrilin I.V. 7.3 ml Joo Joo for (Bolus 2mg/ml) Nate Sullivan antiplatelet RN RN therapy 10:06:54 Integrilin wasted 2.7 ml Joo Joo to sharp's (Bolus 2mg/ml) Nate Sullivan RN RN 10:21:07 Plavix P.O. 600 mg Joo Joo for Nate Sullivan antiplatelet RN RN therapy Procedure Log Time Note 9:00:44 Signed procedure consent form obtained from patient. 9:00:46 Diagnostic Cath status Urgent 9:00:46 Time tracking: Regular hours (M-F 7:00 - 5:00) 9:00:53 Plan of Care:Hemodynamics will remain stable., Cardiac rhythm will remain stable., Comfort level will be maintained., Respiratory function will remain adequate., Patient/ family verbilizes understanding of procedure., Procedure tolerated without complication., Recovers from procedure without complications.. 9:03:28 Patient allergic to Other allergyIODINE AND IODIDE CONTAINING PRODUCTS 9:03:57 Lab Result : BUN 15 mg/dl 9:03:57 Lab Result : Hemoglobin 12.8 g/dl 9:03:57 Lab Result : Creatinine 0.8 mg/dl 9:03:57 Lab Result : Hematocrit 39.3 % 9:05:28 Jose MORIN(R) sent for patient. Start room use. 9:23:28 Patient received from Med II to CCL 1 Alert and oriented. Tansferred to table in Supine position. 9:23:29 Warm blankets applied, and chen hugger turned on for patient comfort. 9:23:30 Correct patient and procedure confirmed by team. 9:23:30 ECG and BP/O2 sat monitors applied to patient. 9:29:37 Vital chart was started 9:29:39 Baseline sample Acquired. 9:29:44 Rhythm: sinus rhythm 9:29:45 Full Disclosure recording started 9:29:54 H&P Date Dictated: 01/14/2019 Within 30 days and on chart., H&P Addendum completed by physician on day of procedure. (MUST COMPLETE FOR ALL OUTPATIENTS). 9:29:56 Pre-procedure instructions explained to patient. 9:29:57 Pre-op teaching completed and patient verbalized understanding. 9:29:59 Family in patients room. 9:30:00 Patient NPO since Midnight. 9:30:02 Is the patient allergic to Iodine/contrast media? Yes. 9:30:03 Was the patient premedicated? Yes 9:30:05 Is patient on blood thinner?No 9:30:08 Patient diabetic? No. 9:30:10 Previous problem with sedation/anesthesia? No ? 9:30:11 Snore? Yes 9:30:12 Sleep apnea? No 9:30:13 Deviated septum? No 9:30:14 Opens mouth fully? Yes 9:30:15 Sticks out tongue? Yes 9:30:18 Airway obstruction? No ? 9:30:21 Dentures? Yes OUT 9:30:25 Pre procedure: right dorsailis pedis pulse 1+ Palpable, but thready & weak; easily obliterated 9:30:27 Modified Miguelangel's test Ulnar < 7 seconds 9:30:28 Patient pain scale 0/10 ?. 9:30:37 IV patent on arrival in left forearm with 0.9% NaCl at KVO. 9:30:39 Lab results completed and on chart. 9:30:44 Right Radial & Right Groin area was prepped with chlora-prep and draped in sterile fashion 9:30:45 Alarms reviewed by R. N. 9:30:46 Sharps counted by scrub and verified by R.N. 9:30:50 Use device set Radial Dx or PCI 9:30:51 Tegaderm 4 x 4 ([id number]) opened to sterile field. 9:30:52 ACIST Manifold (07216) opened to sterile field. 9:30:52 ACIST Hand Control (57524) opened to sterile field. 9:30:53 ACIST Syringe (26109) opened to sterile field. 9:30:54 Medline Cath Pack ([id number]) opened to sterile field. 9:30:54 Bag Decanter (2002) opened to sterile field. 9:30:56 DIAGNOSTIC WIRE .035 260cm J wire (945493) opened to sterile field. 9:30:56 MBrace Wrist Support (061724964) opened to sterile field. 9:30:57 SHEATH 6FR Slender (24-8381) opened to sterile field. 9:32:41 0.9% NaCl 100 ml/hr I.V. was administered by Joo Sullivan RN; Per physician; 9:32:52 Oxygen 2 l/min etCO2 Nasal cannula was administered by Joo Sullivan RN; for low 02 sats; 9:33:03 Heparin Flush Bag (1000units/500ml NS) 2 bags added to field was administered by Joo Sullivan RN; used for procedure; 9:33:17 Lidocaine 2% 20ml vial added to field was administered by Joo Sullivan RN; for local anesthetic; 9:33:31 Radial Cocktail (Verapamil 2mg/Nitro 400mcg/Heparin 1500units) 1 syringe added to field was administered by Joo Sullivan RN; used for procedure; 9:38:42 Patient Weight : 176.37 lbs 9:47:02 --------ALL STOP TIME OUT------ 9:47:03 Final Timeout: patient, procedure, and site verified with staff and physician. All members of the team are in agreement. 9:47:59 Right Radial & Right Groin site verified by team. 9:48:08 Maximum allowable Isovue 370 dose 300ml. Physician notified. (300ml for normal creatinines. For patients with creatinine of 1.7 or higher multiply weight(kg) x 5 divided by creatinine.) 9:48:13 Fire Safety Assessment: A--An alcohol-based skin anteseptic being used preoperatively., C--Open oxygen or nitrous oxide is being used., D--An ESU, laser, or fiber-optic light is being used. 9:48:20 Physical assessment completed. ASA score P 2 - A patient with mild systemic disease as per Marcin Cheng MD. 9:48:25 Sedation plan: IV Moderate Sedation Medication:Versed, Fentanyl 9:48:56 Versed 2 mg I.V. was administered by Joo Sullivan RN; for sedation; 9:49:05 Fentanyl 100 mcg I.V. was administered by Joo Sullivan RN; for sedation; 9:52:30 Procedure started. 9:52:34 Local anesthetic to right radial artery with Lidocaine 2% by Marcin Cheng MD.INITIAL ACCESS ONLY 9:53:49 A 6 Fr Short sheath was inserted into the Right Radial artery 9:54:15 Radial Cocktail (Verapamil 2mg/Nitro 400mcg/Heparin 1500units) 1 syringe I.A. was administered by Marcin Cheng MD; for vasodilation; 9:54:30 NO CHARGE DxterPeerPong Ultra 4.0 radial catheter advanced over the wire. 9:54:48 LV angiography performed. 9:54:51 LV gram done using HAILE 9:54:56 EF : 60 % 9:54:59 Injector settings: Ml/sec: 7, Volume: 15, 9:55:04 LCA angiography performed. 9:55:44 RCA angiography performed. 9:56:43 Catheter exchanged over wire. 9:57:45 Use device set [facility] PCI 9:57:51 GUIDE 6FR AR 2.0 catheter ([id number]) opened to sterile field. 9:57:58 Gardiner Oneida Eagleye IVUS Catheter ([id number]) opened to sterile field. 9:58:01 INFLATOR Merit BasixCompak (CW6913) opened to sterile field. 9:58:08 CHOICE PT Extra Support 182cm wire ([id number]) opened to sterile field. 9:58:47 6 Fr AR 2 guide catheter was inserted over the wire 9:59:04 CPTXS wire advanced. 9:59:49 Heparin Bolus 4000 units I.V. was administered by Joo Sullivan RN; for anticoagulation; 10:00:21 Wire advanced across lesion. 10:00:26 IVUS catheter advanced over wire. 10:02:02 IVUS pass to RCA lesion performed. 10:02:38 IVUS catheter removed over wire. 10:06:42 Integrilin (Bolus 2mg/ml) 7.3 ml I.V. was administered by Joo Sullivan RN; for antiplatelet therapy; 10:06:54 Integrilin (Bolus 2mg/ml) 2.7 ml wasted was administered by Joo Sullivan RN; to sharp's; 10:07:37 IVUS measured at 72% in the PLV and 70% in the mid RCA. 10:08:46 Place stent Inflation Number: 1 A CHIKA RX 2.5 x 08 stent ([id number]) was prepped and advanced across the 1st RPL 72. The stent was deployed at 13 CATRACHITA for 0:10 (min:sec) 0. 10:09:25 Stent catheter was removed intact over wire. 10:10:21 Place stent Inflation Number: 1 A CHIKA RX 3.5 x 15 stent ([id number]) was prepped and advanced across the Mid RCA 70. The stent was deployed at 19 CATRACHITA for 0:10 (min:sec) 0. 10:10:32 Stent catheter was removed intact over wire. 10:10:33 Wire removed. 10:10:33 Guide catheter removed. 10:10:40 GUIDE 6FR XBLAD 3.5 catheter ([id number]) opened to sterile field. 10:14:06 6 Fr XBLAD 3.5 guide catheter was inserted over the wire 10:14:14 [employer] Products Verrata Plus pressure wire (84607O) opened to sterile field. 10:14:26 FFR/IFR wire advanced. 10:17:06 Pre PCI Site: [place] has 80% stenosis. 10:17:18 CIRC lesion measured at 80 with IFR 10:18:18 Place stent Inflation Number: 1 A CHIKA RX 2.5 x 08 stent ([id number]) was prepped and advanced across the Prox CX 80. The stent was deployed at 13 CATRACHITA for 0:10 (min:sec) 0. 10:20:48 TR BAND Standard ([id number]) opened to sterile field. 10:20:59 Stent catheter was removed intact over wire. 10:21:00 Wire removed. 10:21:00 Guide catheter removed. 10:21:07 Plavix 600 mg P.O. was administered by Joo Sullivan RN; for antiplatelet therapy; 10:21:08 Sheath removed intact; hemostasis achieved with Mechanical Compression to the Right Radial artery. 10:21:10 Procedure ended.(Physican Out) 10:21:27 Fluoroscopy time 07.50 minutes. 10:21:31 Fluoroscopy dose: 1158 mGy 10:21:31 Flurop Dose total: 1158 10:21:35 Contrast amount:Isovue 370 101ml. 10:21:37 Sharps counted by scrub and verified by R.N. 10:21:43 TR band inflated with 10cc of air. 10:21:44 Insertion/operative site no bleeding no hematoma. 10:21:46 Post Procedure Pulses reassessed and unchanged 10:21:50 Post-procedure physical assessment completed. ASA score P 2 - A patient with mild systemic disease as per Marcin Cheng MD. 10:21:53 Post procedure rhythm: unchanged. 10:21:56 Estimated blood loss: 10 ml 10:21:57 Post procedure instruction explained to patient.Patient verbalizes understanding. 10:21:57 Patient needs reinforcement of post procedure teaching. 10:22:59 Procedure type changed to Cath procedure, Diagnostic procedure, LHC, LHC w/Coronaries, FFR/IVUS, FFR Initial, Intra-Coronary IVUS Initial, Intra-Coronary IVUS Additional, PCI procedure, Coronary Stent, Coronary Stent Initial x2, Coronary Stent Additional 10:23:02 Procedure Complication : No complications 10:29:15 Procedure and supply charges have been captured, reviewed, submitted and are correct. 10:29:20 Vital chart was stopped 10:29:21 See physician's report for complete and final results. 10:29:22 Report given to Pre/Post Procedure Room. 10:29:25 Patient transfered to Pre/Post Procedure Room with Stretcher. 10:29:28 Procedure ended. 10:29:28 Full Disclosure recording stopped 10:29:45 End room use (Document Last) Intervention Summary Intervention Notes Time ActionType Lesion and Equipment Used Action# Pressure Duration Attributes 10:08:46 Place stent 1st RPL CHIKA RX 2.5 x 1 13 00:10 08 stent ([id number]) 10:10:21 Place stent Mid RCA CHIKA RX 3.5 x 1 19 00:10 15 stent ([id number]) 10:18:18 Place stent Prox CX CHIKA RX 2.5 x 1 13 00:10 08 stent ([id number]) Device Usage Item Name Manufacture Quantity Catalog Number Hospital Part Current Minimal Lot# / Charge Number Stock Stock Serial# Code Tegaderm 4 x 4 3M 1 [id number] 766624 015328 5 (1626W) ACIST Manifold Acist 1 60482 193361 652572 247569 5 (27479) Medical Systems Inc ACIST Hand Acist 1 69826 367942 770482 386977 5 Control Medical (07914) Systems Inc ACIST Syringe Acist 1 62508 221479 580854 778974 20 (69199) Medical Systems Inc Medline Cath Medline 1 [id number] 616877 83796 625477 5 Pack ([id number]) Bag Decanter Microtek 1 2001S 264275 13065 506722 5 (2001S) Medical Inc. DIAGNOSTIC St Jarred 1 100567 185102 724899 838361 30 WIRE .035 260cm J wire (298172) MBrace Wrist Advanced 1 140-0250-00 328592 33804 798510 5 Support Vascular ([id number]) Dynamics SHEATH 6FR Terumo 1 [id number] 890366 685361 652169 5 Slender (80-1060) GUIDE 6FR AR Medtronic 1 [id number] 017647 79210 580521 1 2.0 catheter ([id number]) Gardiner Gardiner 1 [id number] 368069 624372 898340 8 Oneida Eagleye IVUS Catheter (39020T) INFLATOR Merit Merit 1 JY5364 800279 672883 530422 15 FitclinewvNuvosun Medical (EZ3162) CHOICE PT Garrison 1 [id number] 806472 965090 956654 5 Extra Support Scientific 182cm wire ([id number]) CHIKA RX 2.5 x Medtronic 2 [id number] 978777 7701958 797520 5 [id number] 08 stent [id number] ([id number]) CHIKA RX 3.5 x Medtronic 1 [id number] 190309 0576841 441628 5 [id number] 15 stent ([id number]) GUIDE 6FR Cardinal 1 [id number] 948677 529009 047537 10 XBLAD 3.5 Health catheter ([id number]) Gardiner Gardiner 1 [id number] 890953 455577091 012516 5 Verrata Plus pressure wire (02559E) TR BAND Terumo 1 [id number] 525802 155411 933879 40 Standard ([id number]) Signature Audit [place] Stage Time Signature Unsigned Intra-Procedure 01/15/2019 Jose Delgado 10:32:02 AM RT(R) Signatures Monitor : Jose Delgado RT Signature : Date : Time : [address] [place] [address]
[2019-01-14 23:00] VITALS: BP 164/84
[2019-01-14 23:11] LABS: APTT 34.1 SECONDS (22.8-39.4); INR 0.97 (0.85-1.17); PROTIME 12.4 SECONDS (11.6-15.0)
[2019-01-14 23:14] LABS: BASOPHILS 0.2 % (0-2); EOSINOPHILS 1.6 % (0-7); HEMATOCRIT 42.1 % (36.0-48.0); HEMOGLOBIN 13.9 g/dL (12-16); IMMATURE GRANULOCYTES 0.4 % (0-5); LYMPHOCYTES 31.7 % (15-50); MCH 28.6 pg (26.0-34.0); MCV 86.6 fL (80.0-100.0); MONOCYTES 14.3 % (2-11); NEUTROPHILS 51.8 % (40-80); PLATELET COUNT 211 10x3/uL (130-400); RBC 4.86 10x6/uL (4.00-5.40); RDW 14.7 % (11.5-14.5); WBC 8.3 10x3/uL (4.8-10.8)
[2019-01-14 23:17] LABS: ALBUMIN 3.4 g/dL (3.4-5.0); ALKALINE PHOSPHATASE 107 U/L (46-116); ALT (SGPT) 52 U/L (10-68); BILIRUBIN - TOTAL 0.26 mg/dL (0.2-1.3); CALC OSMOLALITY 286 mosm/kg (275-300); CALCIUM 9.2 mg/dL (8.5-10.1); CHLORIDE - SERUM 105 mmol/L (98-107); CREATININE - SERUM 0.9 mg/dL (0.6-1.3); GLUCOSE 104 mg/dL (74-106); POTASSIUM - SERUM 3.3 mmol/L (3.5-5.1); PROTEIN - SERUM 7.1 g/dL (6.4-8.2); SODIUM 143 mmol/L (136-145); UREA NITROGEN 17 mg/dL (7-18); eGFR NON AFRICAN AMERICAN 65 mL/min (90-120)
[2019-01-14 23:28] LABS: CKMB 0.8 U/L (0.0-3.6); CREATINE KINASE 85 UL (21-215); MAGNESIUM - SERUM 1.9 mg/dL (1.8-2.4)
[2019-01-14 23:30] VITALS: BP 124/61
[2019-01-14 23:30] LABS: TROPONIN-I < 0.017 ng/mL (0.000-0.060)
--- NOTE | 2019-01-14 23:35 | NUR ---
PT GIVEN ONE NITRO WITH SOME RELIEF, SECOND NITRO GIVEN WITH A LITTLE MORE RELIEF. PT STILL REPORTS PRESSURE. ONE MORE NITRO GIVEN WILL CONTINUE TO MONITOR PT.
[2019-01-15] VITALS: BP 141/70
[2019-01-15 01:00] VITALS: BP 135/61
[2019-01-15 01:59] VITALS: BP 144/74; BMI 31.1
[2019-01-15 04:00] VITALS: BP 109/48
[2019-01-15 05:56] LABS: BASOPHILS 0.5 % (0-2); EOSINOPHILS 2.5 % (0-7); HEMATOCRIT 39.3 % (36.0-48.0); HEMOGLOBIN 12.8 g/dL (12-16); IMMATURE GRANULOCYTES 0.4 % (0-5); LYMPHOCYTES 32.5 % (15-50); MCH 28.1 pg (26.0-34.0); MCHC 32.6 g/dL (31.0-37.0); MCV 86.2 fL (80.0-100.0); MEAN PLATELET VOLUME 11.1 fL (7.4-10.4); MONOCYTES 13.7 % (2-11); NEUTROPHILS 50.4 % (40-80); PLATELET COUNT 198 10x3/uL (130-400); RBC 4.56 10x6/uL (4.00-5.40); RDW 14.5 % (11.5-14.5); WBC 7.3 10x3/uL (4.8-10.8)
[2019-01-15 06:34] LABS: ALBUMIN 2.9 g/dL (3.4-5.0); ALKALINE PHOSPHATASE 82 U/L (46-116); ALT (SGPT) 46 U/L (10-68); BILIRUBIN - TOTAL 0.32 mg/dL (0.2-1.3); CALC OSMOLALITY 289 mosm/kg (275-300); CALCIUM 8.7 mg/dL (8.5-10.1); CHLORIDE - SERUM 107 mmol/L (98-107); CKMB 0.6 U/L (0.0-3.6); CREATINE KINASE 58 UL (21-215); CREATININE - SERUM 0.8 mg/dL (0.6-1.3); GLUCOSE 91 mg/dL (74-106); POTASSIUM - SERUM 3.3 mmol/L (3.5-5.1); SODIUM 145 mmol/L (136-145); TROPONIN-I < 0.017 ng/mL (0.000-0.060); UREA NITROGEN 15 mg/dL (7-18); eGFR NON AFRICAN AMERICAN 74 mL/min (90-120)
--- NOTE | 2019-01-15 07:30 | NUR ---
AM ROUNDS COMPLETED. INTRODUCED MYSELF TO PT PRIMARY RN FOR TODAYS SHIFT. PT IS A&O LYING DOWN IN BED RESTING QUIETLY. SHIFT ASSESSMENT COMPLETED. PT WAS ADMITTED WITH CHEST PAIN HOWEVER DENIES ANY SINCE LAST NIGHT. RR NONLABORED ON RA. HEART SOUNDS NOTED RRR S1S2 NOTED. TELEMETRY READING 63BPM NORMAL SR. PER [facility] PAULA WILSON. PT HAS BEEN NPO SINCE MIDNIGHT AND IS WAITING TO BE SEEN FOR POSSIBLE HEART CATHERIZATION. NO CURRENT ORDERS. PT DENIES ANY CURRENT NEEDS. WILL CPOC.
[2019-01-15 07:56] VITALS: BP 138/63
--- NOTE | 2019-01-15 09:10 | NUR ---
DECIDED TO TAKE PT TO THE HEART CATH. NOTIFIED HIM OF IODINE ALLERGY AND PRE-OP MEDICATIONS GIVEN FOR THIS. ALSO GAVE PT HER NORMAL PRE-OP MEDICATIONS. PT SIGNED CONSENTS AND VERBALIZED UNDERSTANDING. CATH TEAM HERE TO TAKE PT NOW. NO FURTHER NEEDS.
[2019-01-15] MEDS ORDERED: PLAVIX75 MG PO (10:30)
--- NOTE | 2019-01-15 10:32 | NUR ---
[facility] CALLED AND STATES PT IS GOING HOME FROM [place]OV[place]. COLLECTED ALL HER BELONGINGS AND SENT TO [facility]. NO FURTHER.
--- NOTE | 2019-01-15 10:40 | NUR ---
PT ARRIVED BY STRETCHER. PLACED ON MONITORS. ASSESSMENT COMPLETED. CALL LIGHT WITHIN REACH. PT C/O NAUSEA. ALREADY GIVEN ZOFRAN AND COOL CLOTH TO HEAD. REPOSITIONED FOR COMFORT.
--- NOTE | 2019-01-15 10:55 | NUR ---
RIGHT RADIAL TR BAND IN PLACE. NO BLEEDING/HEMATOMA NOTED. VSS. PT REPORTS NAUSEA IS IMPROVING. GIVEN SIPS OF SPRITE. CALL LIGHT WITHIN REACH. WILL CONTINUE TO MONITOR.
--- NOTE | 2019-01-15 11:25 | NUR ---
RIGHT RADIAL TR BAND IN PLACE. NO BLEEDING/HEMATOMA NOTED. CALL LIGHT WITHIN REACH. NO NEEDS AT THIS TIME.
--- NOTE | 2019-01-15 12:00 | NUR ---
RIGHT RADIAL TR BAND IN PLACE. NO BLEEDING/HEMATOMA NOTED. VSS.
--- NOTE | 2019-01-15 12:31 | NUR ---
PT RESTING COMFORTABLY. VSS. RIGHT RADIAL TR BAND IN PLACE. NO BLEEDING/HEMATOMA NOTED.
--- NOTE | 2019-01-15 13:03 | NUR ---
PT RESTING COMFORTABLY. DOES NOT WANT TO EAT AT THIS TIME. STILL DROWSY. VSS. RIGHT RADIAL TR BAND IN PLACE. NO BLEEDING NOTED.
--- NOTE | 2019-01-15 13:30 | NUR ---
3cc OF AIR REMOVED FROM TR BAND. TOLERATED WELL. NO BLEEDING NOTED.
--- NOTE | 2019-01-15 13:45 | NUR ---
3cc OF AIR REMOVED FROM TR BAND. TOLERATED WELL. NO BLEEDING NOTED.
--- NOTE | 2019-01-15 14:00 | NUR ---
RIGHT RADIAL TR BAND IN PLACE. NO BLEEDING NOTED. 3cc OF AIR REMOVED FROM TR BAND. TOLERATED WELL. LEFT HAND PIV D/C'D WITH CATH TIP INTACT. FAMILY AT BEDSIDE. PT INSTRUCTED TO GET UP AND DRESSED AT THIS TIMVE.
--- NOTE | 2019-01-15 14:05 | NUR ---
PT GOVERNMENT CLERK LIGHT. PIV INSERTION SITE ON RIGHT WRIST HAS EGG SIZED HEMATOMA UNDER SKIN. PRESSURE HELD. TOLERATED WELL. WARM COMPRESS PLACED AND HEMATOMA MASHED OUT GENTLY. SHE TOLERATED WELL. DRESSING REAPPLIED TO IV SITE. WILL MONITOR. 3cc OF AIR REMOVED FROM TR BAND. PT TOLERATED WELL. NO HEMATOMA NOTED. 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 NO NEW BLEEDING NOTED.
--- NOTE | 2019-01-15 14:20 | NUR ---
WENT IN TO WEAN TR BAND. VERY SMALL AMOUNT OF SWELLING NOTED PROXIMAL TO TR BAND. SITE MARKED AND WILL MONITOR. WILL NOT WEAN OUT ANY MORE AIR FROM TR BAND AT THIS TIME. LEFT HAND DRESSING INTACT. NO MORE BLEEDING/SWELLING NOTED AT THIS TIME.
--- NOTE | 2019-01-15 14:35 | NUR ---
SMALL AMOUNT OF BLEEDING NOTED PROXIMAL TO TR BAND. CALLED NARCISA FROM THE BACK. HE CAME OUT TO ASSESS AND HELD PRESSURE. WILL HOLD OFF WEANING TR BAND FOR 30 MINUTES AND SEE IF PT TOLERATES.
--- NOTE | 2019-01-15 15:20 | NUR ---
TR BAND REMOVED AND DRESSING APPLIED. NO NEW BLEEDING/HEMATOMA NOTED. WILL MONITOR RIGHT WRIST FOR APPROX 30 MINUTES AND MAKE SURE THERE IS NO MORE BLEEDING PRIOR TO DISCHARGE HOME.
--- NOTE | 2019-01-15 15:50 | NUR ---
RIGHT WRIST DRESSING C/D/I. NO MORE SWELLING NOTED. RIGHT WRIST BRACE IN PLACE. PT INSTRUCTED TO KEEP ON FOR 2 HOURS AFTER ARRIVAL HOME. SHE VOICED UNDERSTANDING. DISCUSSED DISCHARGE INSTRUCTIONS WITH PT AND PT'S FAMILY. THEY VOICED UNDERSTANDING. PT AMUBLATED TO RESTROOM. VOIDED WITHOUT DIFFICULTY.
--- NOTE | 2019-01-15 16:00 | NUR ---
PT TAKEN OUT TO VEHICLE BY WHEELCHAIR. NO S/S OF DISTRESS NOTED. ALL BELONGINGS AND PAPERWORK IN HAND.
--- NOTE | 2019-01-21 17:17 | DS ---
PATIENT:KRISTI SON :45 MEDICAL RECORD: [id number] DISCHARGE SUMMARY ADMISSION DATE: 01/14/19 DISCHARGE DATE: 01/15/19 DISCHARGE DIAGNOSES: 1. Percutaneous transluminal coronary angioplasty and stent to the right coronary artery and left circumflex this admission. 2. Unstable angina. 3. Coronary artery disease. 4. Hypertension. 5. Hyperlipidemia. HOSPITAL COURSE: Ms. Son presents with unstable anginal symptomatology, found to have significant disease of the RCA and left circumflex, underwent successful PTCA and stent of both territories, was discharged home with the addition of aspirin and Plavix to her medical regimen. We will follow up with [facility] in 1 month. TRANSINT:[id number] Voice Confirmation ID: [id number] DOCUMENT ID: [id number] SALMA FERNANDES MD at 1717 CC: [id number] DICTATION DATE: 01/15/19 1024 BODY SHOP MECHANIC: 01/16/19 0228 DIS IN 01/15/19 [id number] [place] [address]
--- NOTE | 2019-01-21 17:17 | HP ---
PATIENT: KRISTI SON MEDICAL RECORD: [id number] ACCOUNT: [id number] LOCATION:[facility] : 45 ADMISSION DATE: 01/14/19 PCP: AYO CADET MD HISTORY AND PHYSICAL EXAMINATION DIAGNOSES: 1. Unstable angina. 2. Coronary artery disease. 3. Previous PTCA stent. 4. Paroxysmal atrial fibrillation. 5. Hypertension. 6. CONTRAST ALLERGY. 7. GERD. HISTORY OF PRESENT ILLNESS: Mrs. Son presents with 1-day of increasing anginal symptomatology, quite severe. She had a severe pressure on her chest, started yesterday, escalated last night, associated with shortness of breath and then diaphoresis. It is just like that of her previous angina, status post PTCA stent approximately 2 years ago. She is on maximal medical therapy with an ARB and a beta-ramón. Her heart rates in the 60s. Systolic blood pressures of 100-110. She was as well given nitrates and is on nitro paste at this time. She has had recurrent chest pain this morning. She still has the heaviness there. She has not had the severe episode with the diaphoresis this morning. Her troponin is normal. Her EKG has ST-T abnormalities anteriorly. PHYSICAL EXAMINATION: GENERAL APPEARANCE: Well-nourished, well-developed, appears stated age. Level of distress, comfortable. PSYCHIATRIC: Mental status, alert, normal affect. Orientation, oriented to time, place and person. EYES: Lids and conjunctiva, noninjected. No discharge, no pallor. ENT: Lips, teeth, gums, normal dentition. Oropharynx, no cyanosis, no pallor. NECK: Carotid arteries, bilateral normal upstroke, no bruits, no thrills. JUGULAR VEINS: No jugular venous pressure or distention. CERVICAL LYMPH NODES: Nontender, nonenlarged. THYROID: Not enlarged. Nontender. No nodules. LUNGS: Respiratory effort, unlabored. CHEST: Normal curvature. No thoracic deformity. No chest wall tenderness. Percussion, resonant. Auscultation, clear. No wheezes, no rales, no rhonchi. CARDIOVASCULAR: Precordial exam, nondisplaced. No heaves or pericardial thrills. Rate and rhythm, regular. Heart sounds, normal S1, normal S2. No S3, no gallop, no rub. Systolic murmur, not heard. Diastolic murmur, not heard. EXTREMITIES: No cyanosis, no edema. Peripheral pulses, full and equal in all extremities, except as noted. No bruits appreciated. ABDOMEN: Soft, nondistended. Normal aorta. No bruit. Nontender. No masses. Liver, nontender, no hepatomegaly. Spleen, nontender, no splenomegaly. MUSCULOSKELETAL: No joint tenderness. No joint swelling. No erythema. NEUROLOGICAL: Normal gait, normal strength, normal tone. SKIN: Warm and dry. OVERALL IMPRESSION: Recurrent angina, escalating rapidly yesterday with severe episode of chest pain and diaphoresis in a patient with a past history of coronary artery disease, little room to work with medical therapy as her heart rates in the 60s, systolic blood pressure is in the 100-110 range. Despite the ARB, beta-ramón and nitrate, she continues to have episodes of chest pain. We HISTORY AND PHYSICAL [id number] KRISTI SONMelissa will proceed with coronary angiography. Further care depends upon findings of the angiography. We will premedicate for the CONTRAST ALLERGY. TRANSINT:[id number] Voice Confirmation ID: [id number] DOCUMENT ID: [id number] SALMA FERNANDES MD at 1717 CC: [id number] DICTATION DATE: 01/15/19 0855 UNLOADING CHECKER: 01/15/19 1008 DIS IN 01/15/19 [facility] [address] [place] [address]
--- NOTE | 2019-01-21 17:17 | OP ---
PATIENT NAME: KRISTI TORRES MEDICAL RECORD: [id number] :45 LOCATION:[facility] ADMISSION DATE:01/14/19 SURGEON: SALMA FERNANDES MD DATE OF OPERATION: 01/15/2019 PROCEDURES: 1. PTCA stent RCA. 2. PTCA stent RCA PLV. 3. PTCA stent left circumflex. 4. Intravascular ultrasound RCA. 5. Intravascular ultrasound RCA PLV. 6. IFR left circumflex. 7. Left heart catheterization. 8. Selective coronary angiography. 9. Left ventriculogram. INDICATION: Unstable angina and coronary artery disease. PROCEDURE IN DETAIL: After informed consent was obtained and after a detailed description of the risks, benefits as well as alternative therapies, the patient elected to proceed with angiogram and angioplasty. The right radial area was prepped and draped in normal sterile fashion. Right radial artery was cannulated via modified Seldinger technique with placement of 6-Macedonian sheath. All catheters exchanged through this sheath. FINDINGS: Left ventriculogram was performed in standard 30-degree HAILE view, reveals good cardiac wall motion, ejection fraction 55%. SELECTIVE CORONARY ANGIOGRAPHY: 1. Left main is with no significant angiographic disease. 2. Left anterior descending has mild irregularities, but no flow-limiting stenosis. 3. The left circumflex has 80% stenosis at the ostium and IFR is abnormal. 4. The right coronary artery has previously placed stent that is widely patent. Elsewise the RCA has a 70% stenosis in the mid vessel confirmed by intravascular ultrasound and a 72% stenosis in the PLV confirmed by intravascular ultrasound. PTCA STENT OF THE RCA AND PLV: The RCA was addressed with a 3.5 x 15 mm [place] taken to 21 atmospheres and the PLV with a 2.5 x 8 mm Chris. Result was 0% residual stenosis. PTCA STENT OF THE LEFT CIRCUMFLEX: The stent used was a 2.5 x 8 mm Chris. Result was 0% residual stenosis. OVERALL IMPRESSION: Successful PTCA stent of the RCA, PLV and left circumflex all going from 70% to 80% initial stenosis to 0% residual. TRANSINT:[id number] Voice Confirmation ID: [id number] DOCUMENT ID: [id number] OPERATIVE REPORT [id number] KRISTI TORRES JEFFREY MD at 1717 CC: [id number] DICTATION DATE: 01/15/19 1027 UNIVERSITY ADMINISTRATIVE ASSISTANT: 01/15/19 1440 DIS IN 01/15/19 [facility] [address] [place] [id number]
== END 2019-01-15 16:00 | disposition home or self-care (01) ==
LOC: D.ER 22:28 → D.M2 23:34 → OBSVTIME 23:34 → D.CLR 01-15 10:38
PROVIDERS: Family Medicine; ADMIT Internal Medicine Interventional Cardiology; ATTEND Internal Medicine Interventional Cardiology
DX: I25.110 Atherosclerotic heart disease of native coronary artery with unstable angina pectoris (principal); I48.0 Paroxysmal atrial fibrillation; I10 Essential (primary) hypertension; K21.9 Gastro-esophageal reflux disease without esophagitis; E78.5 Hyperlipidemia, unspecified
CPT/HCPCS: 93458; 92978; 92979; C9600 ×2; C9601

== ENCOUNTER → 2019-07-30 13:25 | Outpatient (CLI) | payer MEDICARE, OTHER ==
--- NOTE | 2019-07-31 15:25 | EC ---
PATIENT:KRISTI TORRES DATE OF SERVICE: 07/30/19 SEX: F MEDICAL RECORD: [id number] DATE OF : 45 LOCATION:[facility] AGE OF PATIENT: 74 ADMISSION DATE: 07/30/19 REFERRING PHYSICIAN: INTERPRETING PHYSICIAN: SALMA CHENG MD ECHOCARDIOGRAM REPORT ECHO CHARGES 4 ECHO COMPLETE Date: 07/30/19 CLINICAL DIAGNOSIS: MITRAL REGURG HX OF CAD/HTN AFIB ECHOCARDIOGRAPHIC MEASUREMENTS (adult normal given) AC root (d.<3.7cm) 3.0 cm LV Septum d (<1.2 cm> 1.9 cm Valve Excursion 2.0 cm LV Septum (systole) 2.4 cm Left Atria (s.<4.0cm> 4.6 cm LVPW d(<1.2cm) 1.7 cm RV (d.<2.3cm) 3.0 cm LVPW (sytole) 2.2 cm LV diastole(<5.6CM) 5.5 cm MV E-F(>70mm/sec) cm LV systole 3.7 cm LVOT Diameter 1.9 cm MV exc.(>10mm) cm Est.ejection fraction (50-75%) % DOPPLER: LVIT cm/sec A 77.0 cm/sec E 88.0 cm/sec LA cm/sec RVSP 37 mmHg LVOT 116 cm/sec AOP1/2T m/s Asc. Ao 143 cm/sec RVOT 80 cm/sec RA cm/sec PA 102 cm/sec AV Gradient Peak 8.21 mmHg AV Mean 4.02 mmHg AV Area 2.2 cm MV Gradient Peak 5.47 mmHg MV Mean 2.00 mmHg MV Area cm COMMENTS: Supervisor Rolling Room: Chana NAVARRO Machine Sand Mixer: 1 Dr. Cheng TAPE# PACS Pericardial Effusion N DATE OF SERVICE: 07/30/2019 FINDINGS: 1. Left ventricular chamber size is within normal limits. Left ventricular systolic function is normal at 60% to 65%. 2. Left atrium is large at 4.6 cm. Right atrium and right atrium ventricle chamber sizes are as well mildly dilated. 3. Valvular structures have normal structure and motion. 4. Doppler interrogation reveals mild aortic insufficiency, mild mitral regurgitation, mild tricuspid regurgitation, no other valvular insufficiency or ECHOCARDIOGRAM REPORT [id number] KRISTI TORRES stenosis. Pulmonary systolic pressure estimated at 37 mmHg. 5. No evidence of pericardial effusion or left ventricular thrombus. TRANSINT:[id number] Voice Confirmation ID: [id number] DOCUMENT ID: [id number] SALMA CHENG MD at 1525 CC: [id number] DICTATION DATE: 07/30/19 1547 MEMBERSHIP COUNSELOR: 07/31/19 0055 DEP CLI 07/30/19 [place] [id number] [place] [id number]
== END | disposition home or self-care (01) ==
LOC: D.HCCECHO 13:25
PROVIDERS: ATTEND Internal Medicine Interventional Cardiology
DX: I34.0 Nonrheumatic mitral (valve) insufficiency (principal)

== ENCOUNTER 2019-08-11 23:50 | Observation (INO) | payer MEDICARE, OTHER ==
[~2019-08-11] VITALS: Ht 160 cm; Wt 79.1 kg
--- NOTE | ~2019-08-11 | HEMODYNAMI ---
PATIENT:KRISTI TORRES MEDICAL RECORD: [id number] : 45 LOCATION:[facility] D.2119 ADMISSION DATE: 08/12/19 Generatedon:08/12/201914:16 Patient name: KRISTI TORRES Patient #: [id number] SSN: : 1945 Date of study: 08/12/2019 Page: Of Hemodynamic Procedure Report Patient Data Patient Demographics Procedure consent was obtained First Name: KRISTI Gender: Female Last Name: MELISSA : 1945 [facility] Initial: LEAH Age: 74 year(s) Patient #: [id number] Race: Additional ID: [id number] Contact details Address: [address] [place], [place] [address] State: [place] City: [place] Zip code: [address] Past Medical History History of disease Date Diagnosis Comments CAD Allergies Allergen Reaction Date Comments Reported Iodine 12/13/2015 Aspirin 12/13/2015 Other allergy 01/15/2019 IODINE AND IODIDE CONTAINING PRODUCTS Other allergy 08/12/2019 IODINE AND IODINE CONTAINING PRODUCTS Admission Admission Data Admission Date: 08/12/2019 Admission Time: 1:53 Admit Source: Other Room #: D.2119 Height (in.): 62.99 BSA: 1.82 (m2) Height (cm.): 160 BMI: 30.86 (kg/m2) Weight (lbs.): 174.17 Weight (kg.): 79 Lab Results Lab Result Date: 08/12/2019 Lab Result Time: 0:00 Biochemistry Name Units Result Min Max BUN mg/dl 13 --(--*-)-- 7 18 Creatinine mg/dl 0.9 --(-*--)-- 0.6 1.3 eGFR ml/min 64.86303 *-(----)-- 90 120 NONAFRICAN CBC Name Units Result Min Max Hematocrit % 41.4 -*(----)-- 42 54 Hemoglobin g/dl 13.4 -*(----)-- 13.5 17.5 Procedure Procedure Types Cath Procedure Diagnostic Procedure [facility] w/Coronaries Sedation Charges Moderate Sedation up to 30 minutes PCI Procedure Coronary Stent Coronary Stent Initial Hemochron ACT Test Procedure Description Procedure Date Procedure Date: 08/12/2019 Procedure Start Time: 13:48 Procedure End Time: 14:11 Procedure Staff Name Function Ortega Nick MD Performing Physician Violet Hernandez RT Monitor Radha Stevenson RT Scrub Kulwinder Aguirre RT Evaporator Helper Rachael Baez RN Nurse Indication CAD Procedure Data Cath Procedure Fluoroscopy Diagnostic fluoroscopy Total fluoroscopy Time: 4.8 time: 4.8 min min Diagnostic fluoroscopy Total fluoroscopy dose: 669 dose: 669 mGy mGy Contrast Material Contrast Material Type Amount (ml) Isovue 300 112 Entry Location Entry Primary Successful Side Size Upsize Upsize Entry Closure Succes sful Closure Location (Fr) 1 (Fr) 2 (Fr) Remarks Device Remarks Femoral Right 5 Fr 6 Fr Exoseal artery Short Estimated blood loss: 10 ml Diagnostic catheters Device Type Used For End Catheter Placement MULTIPACK JL 4.0 5Fr Procedure catheter MULTIPACK 3DRC 5Fr Procedure catheter MULTIPACK Pigtail 5 Fr Procedure catheter Procedure Complications No complications Procedure Medications Medication Administration Route Dosage Oxygen etCO2 Nasal cannula 2 l/min Lidocaine 2% added to field 20 Heparin Flush Bag added to field 2 bags (1000units/500ml NS) 0.9% NaCl I.V. 100 ml/hr Versed I.V. 1 mg Fentanyl I.V. 50 mcg Versed I.V. 1 mg Fentanyl I.V. 50 mcg Heparin Bolus I.V. 4000 units Versed I.V. 1 mg Hemodynamics Rest BSA: 1.82 (m2) HGB: 13.4 (g/dl) O2 Consumption: Estimated: 164 (ml/min) O2 Consu mption indexed: Estimated:90.11 (ml/min/m) Heart Rate: 67 (bpm) Pressure Samples Time Site Value (mmHg) Purpose Heart Use Rate(bpm) 13:54 LV 139/15,20 Snapshot 68 13:55 AO 147/67(93) Pullback 66 Gradients Valve Time Site Site 2 Mean SEP/DFP Peak To Heart Use 1 (mmHg) (sec/min) Peak Rate (mmHg) (bpm) Aortic 13:55 LV AO 8 19 66 147/67(93) Calculations Valve P-P Mean Valve Index Valve Source Name Gradient Area Flow (cm2) Aortic 8 8 Snapshots Pre Cath Intra NCS Post Cath Vital Signs Time Heart Resp SPO2 etCO2 NIBP (mmHg) Rhythm Pain Sedation Rate (ipm) (%) (mmHg) Status Level (bpm) 13:35:04 97 24 95 0 167/74(126) NSR 0 (11) 10(A) , No pain 13:39:28 66 20 93 12 163/82(103) NSR 0 (11) 10(A) , No pain 13:43:51 63 22 96 18.8 150/75(112) NSR 0 (11) 10(A) , No pain 13:48:09 64 17 94 0 144/71(104) NSR 0 (11) 10(A) , No pain 13:52:25 66 15 92 0.7 139/73(94) NSR 0 (11) 9(A) , No pain 13:56:41 67 13 95 19.5 142/77(103) NSR 0 (11) 9(A) , No pain 14:01:03 66 14 97 21 137/68(102) NSR 0 (11) 9(A) , No pain 14:05:21 67 24 97 38.3 136/64(112) NSR 0 (11) 9(A) , No pain 14:09:41 67 15 97 45.8 145/69(112) NSR 0 (11) 10(A) , No pain Medications Time Medication Route Dose Verified Delivered Reason Notes Effectiveness by by 13:38:51 Oxygen etCO2 2 Ortega Rachael used for Nasal l/min [facility] Eduardo Baez RN procedure cannula 13:39:24 Lidocaine 2% added 20ml Ortega Vivas for local to vial [facility] anesthetic field MD REYNOLDS 13:39:30 Heparin Flush added 2 Ortega Ortega used for Bag to bags [facility] procedure (1000units/500ml field MD REYNOLDS NS) 13:39:42 0.9% NaCl I.V. 100 Ortega Majorie Per physician ml/hr [facility] Eduardo Baez RN, MD 13:45:32 Versed I.V. 1 mg Ortega Pedritoie for St Eduardo Baez RN anticoagulation 13:45:39 Fentanyl I.V. 50 Ortega Majorie for sedation mcg [facility] Eduardo Baez RN, MD 13:50:35 Versed I.V. 1 mg Ortega Cano for St Eduardo Baez RN anticoagulation 13:50:39 Fentanyl I.V. 50 Ortega Cano for sedation mcg [facility] Eduardo Baez RN, MD 13:57:45 Heparin Bolus I.V. 4000 Ortega Cano for verif ied units St Eduardo Baez RN anticoagulation with dr MD alatorre 14:02:27 Versed I.V. 1 mg Ortega Cano for St Eduardo Baez RN anticoagulation Procedure Log Time Note 13:03:46 Informed consent obtained and on chart 13:03:55 Procedure Status Urgent Heart Cath (IP). 13:03:56 Time tracking: Regular hours (M-F 7:00 - 5:00) 13:04:01 Plan of Care:Hemodynamics will remain stable., Cardiac rhythm will remain stable., Comfort level will be maintained., Respiratory function will remain adequate., Patient/ family verbilizes understanding of procedure., Procedure tolerated without complication., Recovers from procedure without complications.. 13:04:45 H&P Date Dictated: 08/12/2019 New H&P dictated by physician.. 13:05:43 Patient allergic to Other allergyIODINE AND IODINE CONTAINING PRODUCTS 13:06:17 Lab Result : BUN 13 mg/dl 13:06:17 Lab Result : eGFR NONAFRICAN 64.58015 ml/min 13:06:17 Lab Result : Creatinine 0.9 mg/dl 13:06:17 Lab Result : Hemoglobin 13.4 g/dl 13:06:17 Lab Result : Hematocrit 41.4 % 13:06:51 Patient Weight : 174.17 lbs 13:06:54 Patient Height : 62.99 inches 13:09:36 Indication : CAD 13:15:30 Kulwinder Aguirre RT(R) sent for patient. Start room use. 13:24:59 Patient received from Med II to CCL 1 Alert and oriented. Tansferred to table in Supine position. 13:25:00 Warm blankets applied, and chen hugger turned on for patient comfort. 13:25:01 Correct patient and procedure confirmed by team. 13:25:06 Admit Source: Other 13:25:16 Alarms reviewed by R. N. 13:25:16 Sharps counted by scrub and verified by R.N. 13:33:46 ECG and BP/O2 sat monitors applied to patient. 13:33:48 Vital chart was started 13:33:50 Baseline sample Acquired. 13:34:09 Rhythm: sinus rhythm 13:34:11 Full Disclosure recording started 13:34:12 Pre-procedure instructions explained to patient. 13:34:13 Pre-op teaching completed and patient verbalized understanding. 13:34:14 Family unavailable. 13:34:16 Patient NPO since Midnight. 13:34:18 Is the patient allergic to Iodine/contrast media? Yes. 13:34:20 Was the patient premedicated? Yes 13:34:38 Is patient on blood thinner?Yes 13:34:40 ACC The patient was administered the following blood thiners within the last 24 hours: ACCPlavix 13:34:42 Patient diabetic? No. 13:34:45 Previous problem with sedation/anesthesia? No ? 13:34:46 Snore? Yes 13:35:03 Sleep apnea? No 13:35:04 Deviated septum? No 13:35:07 Opens mouth fully? Yes 13:35:08 Sticks out tongue? Yes 13:35:18 Dentures? Yes IN 13:35:21 Airway obstruction? Yes COPD 13:35:36 Pre procedure: right dorsailis pedis pulse 1+ Palpable, but thready & weak; easily obliterated 13:35:41 Patient pain scale 2/10 ?. 13:35:54 IV patent on arrival in left hand with 0.9% NaCl at [facility]. 13:35:56 Lab results completed and on chart. 13:36:00 Risk of Mortality: .2 13:36:03 Risk of blood transfusion: .3 13:36:06 Risk of MAN: .9 13:36:16 Right groin area was prepped with chlora-prep and draped in sterile fashion 13:36:24 WEAK RADIAL PULSE 13:36:29 Use device set Femoral Dx 13:36:30 ACIST Syringe (55894) opened to sterile field. 13:36:31 Bag Decanter () opened to sterile field. 13:36:32 ACIST Hand Control (09858) opened to sterile field. 13:36:32 ACIST Manifold (36965) opened to sterile field. 13:36:33 Tegaderm 4 x 4 (1626W) opened to sterile field. 13:36:33 Medline Cath Pack ([id number]) opened to sterile field. 13:36:34 DIAGNOSTIC Multipack 5Fr catheter set (MZ5317) opened to sterile field. 13:36:35 SHEATH 5FR [place] (SQH600) opened to sterile field. 13:36:36 EMERALD Guide Wire (854-063) opened to sterile field. 13:38:43 Baseline sample Acquired. 13:38:51 Oxygen 2 l/min etCO2 Nasal cannula was administered by Rachael Baez RN; used for procedure; Verbal order read back and verified. 13:39:24 Lidocaine 2% 20ml vial added to field was administered by Ortega Nick MD; for local anesthetic; Verbal order read back and verified. 13:39:30 Heparin Flush Bag (1000units/500ml NS) 2 bags added to field was administered by Ortega Nick MD; used for procedure; Verbal order read back and verified. 13:39:42 0.9% NaCl 100 ml/hr I.V. was administered by Rachael Baez RN; Per physician; Verbal order read back and verified. 13:42:57 Zero performed for pressure channel P1 13:44:00 --------ALL STOP TIME OUT------ 13:44:01 Final Timeout: patient, procedure, and site verified with staff and physician. All members of the team are in agreement. 13:44:03 Right groin site verified by team. 13:44:06 Fire Safety Assessment: A--An alcohol-based skin anteseptic being used preoperatively., C--Open oxygen or nitrous oxide is being used., D--An ESU, laser, or fiber-optic light is being used. 13:44:14 Physical assessment completed. ASA score P 2 - A patient with mild systemic disease as per Ortega Nick MD. 13:44:18 2) 60-89 Mildly reduced kidney function, and other findings (as for stage 1) point to kidney disease. 13:44:22 Maximum allowable contrast dose (3.7 X eGFR X 0.75)180 ml. 13:44:31 Sedation plan: IV Moderate Sedation Medication:Versed, Fentanyl 13:45:32 Versed 1 mg I.V. was administered by Rachael Baez RN; for anticoagulation; Verbal order read back and verified. 13:45:39 Fentanyl 50 mcg I.V. was administered by Buffie Baez RN; for sedation; Verbal order read back and verified. 13:46:09 IV Extension Set opened to sterile field. 13:48:42 Procedure started. 13:48:47 Local anesthetic to right femoral artery with Lidocaine 2% by Ortega Nick MD.INITIAL ACCESS ONLY 13:49:39 A 5 Fr sheath was inserted into the Right Femoral artery 13:50:35 Versed 1 mg I.V. was administered by Rachael Baez RN; for anticoagulation; Verbal order read back and verified. 13:50:37 A MULTIPACK JL 4.0 5Fr catheter was advanced over the wire and used for Procedure. 13:50:39 Fentanyl 50 mcg I.V. was administered by Rachael Baez RN; for sedation; Verbal order read back and verified. 13:51:14 LCA angiography performed. 13:52:21 Catheter removed. 13:52:39 A MULTIPACK 3DRC 5Fr catheter was advanced over the wire and used for Procedure. 13:53:17 RCA angiography performed. 13:53:19 Catheter removed. 13:53:24 A MULTIPACK Pigtail 5 Fr catheter was advanced over the wire and used for Procedure. 13:53:53 LV gram done using HAILE 13:53:55 Injector settings: Ml/sec: 10, Volume: 20, 13:54:43 LV hemodynamics recorded. 13:54:59 EF : 55 % 13:55:01 Catheter removed. 13:55:02 Proceeding to intervention. 13:55:24 SHEATH 6FR [place] (UTO415) opened to sterile field. 13:55:24 INFLATOR Merit BasixCompak (BM9700) opened to sterile field. 13:55:25 WHISPER 300cm guide wire ([id number]) opened to sterile field. 13:55:30 GUIDE 6FR XBLAD 3.5 catheter ([id number]) opened to sterile field. 13:55:38 Sheath upsized to a 6 Fr Short. 13:55:51 Pre PCI Site: [place] pCirc has 80% stenosis. 13:55:59 6 Fr XBLAD 3.5 guide catheter was inserted over the wire 13:57:45 Heparin Bolus 4000 units I.V. was administered by Rachael Baez RN; for anticoagulation; verified with dr alatorre Verbal order read back and verified. 13:57:50 WHISPER 300 wire advanced. 14:02:22 Wire advanced across lesion. 14:02:27 Versed 1 mg I.V. was administered by Rachael Baez RN; for anticoagulation; Verbal order read back and verified. 14:04:16 Place stent Inflation Number: 1 A CHIKA OTW 3.0 x 08 stent ([id number]) was prepped and advanced across the Prox CX . The stent was deployed at 14 CATRACHITA for 0:20 (min:sec) . 14:04:56 Stent catheter was removed intact over wire. 14:04:56 Wire removed. 14:04:57 Guide catheter removed. 14:05:18 EXOSEAL 6Fr (EX600) opened to sterile field. 14:06:08 Sheath removed intact; hemostasis achieved with Exoseal to the Right Femoral artery. 14:06:09 Procedure ended.(Physican Out) 14:07:13 Fluoroscopy time 04.80 minutes. 14:07:18 Fluoroscopy dose: 669 mGy 14:07:18 Flurop Dose total: 669 14:07:47 Dose Area Product 64368 mGy/cm. 14:07:51 Contrast amount:Isovue 300 112ml. 14:07:54 Maximum allowable dose exceeded? No. 14:07:56 Sharps counted by scrub and verified by R.N. 14:07:59 Post-op/insertion site Right Femoral artery dressed using a 4 x 4 and Tegaderm. 14:08:01 Post-procedure physical assessment completed. ASA score P 2 - A patient with mild systemic disease as per Ortega Nick MD. 14:08:04 Post procedure rhythm: sinus rhythm 14:08:06 Estimated blood loss: 10 ml 14:08:08 Post procedure instruction explained to patient.Patient verbalizes understanding. 14:08:08 Patient needs reinforcement of post procedure teaching. 14:08:36 Procedure type changed to Cath procedure, Diagnostic procedure, LHC, [facility] w/Coronaries, Sedation Charges, Moderate Sedation up to 30 minutes, PCI procedure, Coronary Stent, Coronary Stent Initial, Hemochron ACT Test 14:09:53 Procedure and supply charges have been captured, reviewed, submitted and are correct. 14:09:57 Procedure Complication : No complications 14:10:00 [facility] Findings: MVD- PCI performed (see procedure note) 14:10:02 Operative report dictated upon procedure completion. 14:10:02 See physician's report for complete and final results. 14:11:00 ACT drawn and resulted at 258 seconds. (normal therapeutic range 180-240 seconds). 14:11:52 Vital chart was stopped 14:11:54 Report given to PCU. 14:11:56 Patient transfered to PCU with Bed. 14:11:58 Procedure ended. 14:11:58 Full Disclosure recording stopped 14:12:05 ACC-PCI Only Patient was given prescriptions, or instructed by Ortega Nick MD to start/continue the following medications upon discharge: Plavix 14:12:12 End room use (Document Last) 14:15:12 End room use (Document Last) Intervention Summary Intervention Notes Time ActionType Lesion and Equipment Action# Pressure Duration Attributes Used 14:04:16 Place stent Prox CX CHIKA OTW 3.0 1 14 00:20 x 08 stent ([id number]) Device Usage Item Name Manufacture Quantity Catalog Hospital Part Current Mini mal Lot# / Number Charge Number Stock Stock Serial# Code ACIST Syringe Acist 1 47053 686884 385281 026115 20 (36354) Medical Systems Inc Bag Decanter Microtek 1 2002S 195740 06697 404812 5 (2002S) Medical Inc. ACIST Hand Acist 1 83985 261405 965860 251723 5 Control Medical (06703) Systems Inc ACIST Acist 1 37323 594928 988798 131583 5 Manifold Medical (77059) Systems Inc Tegaderm 4 x 3M 1 1626W 919275 016237 961863 5 4 (1626W) Medline Cath Medline 1 [id number] 293758 17683 602240 5 Pack ([id number]) DIAGNOSTIC Cardinal 1 QM3205 286308 26326 534690 30 Multipack 5Fr Health catheter set (HY2557) SHEATH 5FR Terumo 1 UGM704 946905 157732 315157 5 [place] (VBH187) EMERALD Guide Cardinal 1 502-455 123189 527344 730315 5 Wire Health (502-054) IV Extension Hospira 1 83921-34 6026582 09543 777370 5 Set MULTIPACK JL Cardinal 1 987884 5 4.0 5Fr Health catheter MULTIPACK Cardinal 1 656636 5 3DRC 5Fr Health catheter MULTIPACK Cardinal 1 976722 5 Pigtail 5 Fr Health catheter SHEATH 6FR Terumo 1 XTF547 652931 942275 171875 40 [place] (ZHC969) INFLATOR Merit 1 BJ4979 515185 704621 148975 15 [facility] Medical BasixCompak (XN9664) WHISPER 300cm Foster 1 [id number] 069815 397285 790082 5 guide wire Vascular ([id number]) GUIDE 6FR Cardinal 1 [id number] 570413 204890 504974 10 XBLAD 3.5 Health catheter (91317367) CHIKA OTW 3.0 Medtronic 1 [id number] 106994 0916198 299715 5 [id number] x 08 stent ([id number]) EXOSEAL 6Fr Cardinal 1 EX600 422037 360551 685230 10 (EX600) Health Signature Audit [place] Stage Time Signature Unsigned Intra-Procedure 08/12/2019 Violet Hernandez 2:15:12 PM RT(R) Intra-Procedure 08/12/2019 Rachael Baez RN 2:15:43 PM Intra-Procedure 08/12/2019 Ortega Pickard 2:16:05 PM Eduardo [facility] [address] [place] [address]
[2019-08-12] VITALS (7 sets, daily range): BP systolic 98–159; BP diastolic 57–84; Ht 160 cm; Wt 79.1 kg
[2019-08-12 00:34] LABS: BASOPHILS 0.3 % (0-2); EOSINOPHILS 2.1 % (0-7); HEMATOCRIT 41.4 % (36.0-48.0); HEMOGLOBIN 13.4 g/dL (12-16); IMMATURE GRANULOCYTES 0.5 % (0-5); LYMPHOCYTES 26.9 % (15-50); MCH 27.9 pg (26.0-34.0); MCHC 32.4 g/dL (31.0-37.0); MCV 86.1 fL (80.0-100.0); MEAN PLATELET VOLUME 10.4 fL (7.4-10.4); MONOCYTES 11.6 % (2-11); NEUTROPHILS 58.6 % (40-80); RBC 4.81 10x6/uL (4.00-5.40); RDW 15.5 % (11.5-14.5); WBC 8.6 10x3/uL (4.8-10.8)
[2019-08-12 00:35] LABS: PLATELET COUNT 243 10x3/uL (130-400)
[2019-08-12 00:36] LABS: CALC OSMOLALITY 286 mosm/kg (275-300); CALCIUM 9.2 mg/dL (8.5-10.1); CARBON DIOXIDE 28.6 mmol/L (21.0-32.0); CHLORIDE - SERUM 107 mmol/L (98-107); CREATININE - SERUM 0.9 mg/dL (0.6-1.3); GLUCOSE 100 mg/dL (74-106); POTASSIUM - SERUM 3.5 mmol/L (3.5-5.1); SODIUM 144 mmol/L (136-145); UREA NITROGEN 13 mg/dL (7-18); eGFR NON AFRICAN AMERICAN 65 mL/min (90-120)
[2019-08-12 00:38] LABS: INR 1.02 (0.85-1.17); PROTIME 12.9 SECONDS (11.6-15.0)
[2019-08-12 00:39] LABS: APTT 36.7 SECONDS (22.8-39.4)
--- NOTE | 2019-08-12 00:39 | NUR ---
PT REPORTS DECREASE IN CP FROM 8/10 TO 6/10 AFTER RECEIVING 1 NTG. RN ADMINISTERED SECOND NITRO.
[2019-08-12 00:50] LABS: ALBUMIN 3.3 g/dL (3.4-5.0); ALKALINE PHOSPHATASE 105 U/L (46-116); ALT (SGPT) 36 U/L (10-68); BILIRUBIN - TOTAL 0.28 mg/dL (0.2-1.3); CKMB 1.2 U/L (0.0-3.6); CREATINE KINASE 81 UL (21-215); MAGNESIUM - SERUM 1.8 mg/dL (1.8-2.4); PROTEIN - SERUM 6.8 g/dL (6.4-8.2); TROPONIN-I < 0.017 ng/mL (0.000-0.060)
[2019-08-12] MEDS ORDERED: MICARDIS20 MG PO (02:50)
--- NOTE | 2019-08-12 03:48 | NUR ---
PATIENT APPEARS TO SLEEPING. RESPIRATIONS ARE EVEN AND UNLABORED. NO S/S OF DISTRESS. CALL LIGHT WITHIN REACH. WILL CPOC.
[2019-08-12 08:45] LABS: BASOPHILS 0.4 % (0-2); EOSINOPHILS 2.7 % (0-7); HEMATOCRIT 40.2 % (36.0-48.0); HEMOGLOBIN 12.9 g/dL (12-16); IMMATURE GRANULOCYTES 0.4 % (0-5); LYMPHOCYTES 28.7 % (15-50); MCH 28.1 pg (26.0-34.0); MCHC 32.1 g/dL (31.0-37.0); MCV 87.6 fL (80.0-100.0); MONOCYTES 13.7 % (2-11); NEUTROPHILS 54.1 % (40-80); PLATELET COUNT 241 10x3/uL (130-400); RBC 4.59 10x6/uL (4.00-5.40); RDW 15.7 % (11.5-14.5)
[2019-08-12 08:53] LABS: ANION GAP 20.9 mmol/L (8-16); CALCIUM 8.5 mg/dL (8.5-10.1); CARBON DIOXIDE 26.8 mmol/L (21.0-32.0); CHOL - HDL RATIO 3.9 ratio (2.3-4.1); CREATININE - SERUM 0.9 mg/dL (0.6-1.3); LDL-HDL RATIO 2.2 ratio (1.5-3.5); POTASSIUM - SERUM 3.7 mmol/L (3.5-5.1)
--- NOTE | 2019-08-12 09:33 | NUR ---
TELEMETRY SR. CONSENTS SIGNED FOR [facility]. WILL CONT. PLAN OF CARE.
--- NOTE | 2019-08-12 13:20 | NUR ---
PRE-OPS GIVEN. TO TEST FACILITY ENGINEER BY BED.
--- NOTE | 2019-08-12 14:33 | NUR ---
BACK FROM SPECIAL AGENT SECRET SERVICE. VS WNL. RIGHT GROIN STABLE WITHOUT BLEEDING OR HEMATOMA NOTED. WILL MONITOR.
--- NOTE | 2019-08-12 14:42 | NUR ---
BACK FROM CLOTH PATTERN MAKER. VS WNL. RIGHT GROIN STABLE WITHOUT BLEEDING OR HEMATOMA NOTED. WILL MONITOR.
--- NOTE | 2019-08-12 18:08 | NUR ---
BED REST UP. GROIN STABLE.
--- NOTE | 2019-08-12 19:15 | NUR ---
RECEIVED BEDSIDE REPORT. PATIENT IS ALERT AND ORIENTED, RESTING COMFORTABLY IN BED. RESPIRATIONS ARE EVEN AND UNLABORED. NO S/S OF DISTRESS. NO C/OPAIN. NEEDS MET. CALL LIGHT WITHIN REACH. WILL CPOC.
[2019-08-13] VITALS: BP 97/76
[2019-08-13 04:00] VITALS: BP 93/52
[2019-08-13 06:08] LABS: BASOPHILS 0 % (0-2); EOSINOPHILS 0 % (0-7); HEMATOCRIT 38.5 % (36.0-48.0); HEMOGLOBIN 12.3 g/dL (12-16); IMMATURE GRANULOCYTES 0.5 % (0-5); MCH 27.8 pg (26.0-34.0); MCHC 31.9 g/dL (31.0-37.0); MCV 87.1 fL (80.0-100.0); MEAN PLATELET VOLUME 10.9 fL (7.4-10.4); MONOCYTES 6.1 % (2-11); NEUTROPHILS 86.4 % (40-80); PLATELET COUNT 253 10x3/uL (130-400); RBC 4.42 10x6/uL (4.00-5.40); RDW 15.5 % (11.5-14.5)
[2019-08-13 06:13] LABS: ANION GAP 10.7 mmol/L (8-16); CARBON DIOXIDE 30.2 mmol/L (21.0-32.0); CREATININE - SERUM 0.9 mg/dL (0.6-1.3); POTASSIUM - SERUM 3.9 mmol/L (3.5-5.1)
[2019-08-13 06:33] LABS: WBC 15.9 10x3/uL (4.8-10.8)
--- NOTE | 2019-08-13 07:15 | NUR ---
RECEIVED PT IN BED AAOX4 RESP UNLABORED SKIN W/D COLOR WNL NAD NOTED DENIES ANY NEEDS AT THIS TIME
[2019-08-13 08:00] VITALS: BP 95/48
--- NOTE | 2019-08-13 10:02 | OP ---
PATIENT NAME: KRISTI TORRES MEDICAL RECORD: [id number] :45 LOCATION:D.M2 D.2119 ADMISSION DATE:08/12/19 SURGEON: MARIBELL RUDD MD DATE OF OPERATION: 08/12/2019 PROCEDURE: PTCA stent report, right femoral artery approach. CATHETERS: A 5-Malaysian sheath, 5/4 left and right Liya, 5/4 pig. The procedure was well tolerated. The patient was returned to ken. Sheath was removed. ExoSeal device was placed. FINDINGS: Left ventriculography in 30-degree HAILE view: Normal wall motion. Normal systolic function. CORONARY ANATOMY: LEFT MAIN: Left main is free of disease. LAD: Free of disease in the diagonal system. CIRCUMFLEX: Just proximal to previously placed stent in the ostial portion of circumflex, has a true 90% stenosis. RIGHT CORONARY ARTERY: Huge, dominant right, free of disease, widely patent stent. IMPRESSION: Culprit obviously circumflex. PLAN: Intervention momentarily. DESCRIPTION OF PROCEDURE: A 5-Malaysian sheath exchanged for 6-Malaysian sheath. XB LAD provided good guide catheter support. This was followed by 300 cm Whisper wire was placed across the ostium occluded 90% circ down this vessel. Stent was deployed was 3.0 x 8 Chris drug-eluting stent up to 14 atmospheres. Final angiography shows excellent resolution of 90% stenosis, no significant residual. ANA LUISA flow was 3 throughout the procedure. No snowplowing into the LAD itself. The patient was previously on Plavix. Heparin was used in the lab. Again, Sheath was closed with ExoSeal device. TRANSINT:[id number] Voice Confirmation ID: [id number] DOCUMENT ID: [id number] MARIBELL RUDD MD at 1002 CC: [id number] DICTATION DATE: 08/12/19 1415 SENIOR ACCOUNTING SPECIALIST: 08/13/19 0002 ADM IN [place] [id number] [place] [id number]
--- NOTE | 2019-08-13 10:02 | CN ---
PATIENT NAME:KRISTI TORRES MEDICAL RECORD: [id number] : 45 LOCATION:D. D.2119 ADMIT DATE: 08/12/19 ACCOUNT: [id number] CONSULTING PHYSICIAN: MARIBELL RUDD MD REFERRING PHYSICIAN: LILI BLEVINS MD DATE OF CONSULTATION: 08/12/2019 HISTORY OF PRESENT ILLNESS: A 74-year-old lady with known history of coronary artery disease status post stent in the right coronary. She has a history of atrial fibrillation as well as hypertension, but having more of a breakthrough atrial fib as of late. These are accompanied by angina, chest tightness, pressure, heaviness in the chest, had an episode yesterday, fairly severe. We are asked to see her concerning her cardiovascular status. PAST MEDICAL HISTORY: Includes: 1. History of coronary artery disease, status post intervention. 2. Hypertension. 3. Hyperlipidemia. MEDICATIONS: Include Plavix 75 every day, amiodarone 200 every daily, losartan 25 every day, telmisartan 20 every day, aspirin 81 every day, Lasix 20 every day, Pepcid 40 every day. ALLERGIES: IODINE. SOCIAL HISTORY: She is a nonsmoker, recreational alcohol. Easily takes care her ADLs, does try to walk on a semi-regular basis. REVIEW OF SYSTEMS: The patient reports easy bruising but reports no swollen glands. The patient reports no fever, no night sweats, no significant weight gain, no significant weight loss. No significant exercise tolerance. The patient reports no dry eyes, no irritation, no vision change. Patient reports no difficulty hearing and no ear pain. Patient reports no frequent nose bleeds or nose and sinus problems. Patient reports on arm pain on exertion. No shortness of breath while lying down. No history of heart murmur. Patient reports no cough, no wheezing or coughing up blood. Patient reports no abdominal pain, no vomiting. Normal appetite. No diarrhea and not vomiting blood. No nausea and no constipation. Patient reports no incontinence. No difficulty urinating. No hematuria. No increased frequency. Patient reports no muscle aches. No weakness, no arthralgias, no back pain. No swelling of the extremities. Patient reports no abnormal mole, no jaundice, no rashes. Reports no loss of consciousness. No weakness and no numbness. No seizures, dizziness, or headaches. The patient reports no depression, no sleep disturbance, feeling safe in a relationship and no alcohol abuse. Patient reports on fatigue. Reports no runny nose or sinus pressure. No itching, no hives, and no frequent sneezing. PHYSICAL EXAMINATION: GENERAL: Pleasant female in no acute distress. VITAL SIGNS: Blood pressure 120-132/59, pulse 61 and regular. HEENT: Normocephalic, atraumatic. NECK: No JVD or bruit. HEART: Regular, II/ systolic ejection murmur. LUNGS: Good air excursion. ABDOMEN: Soft, nontender. CONSULT REPORT [id number] KRISTI TORRES EXTREMITIES: Pulse 2+ with no edema. DIAGNOSTIC DATA: ECG shows nonspecific ST-T changes, questionable LVH. IMPRESSION: Acute coronary syndrome, questionable if this is underlying paroxysmal atrial fibrillation or demand ischemia versus fixed obstruction. PLAN: For angiography, intervention based on above. TRANSINT:[id number] Voice Confirmation ID: [id number] DOCUMENT ID: [id number] MARIBELL RUDD MD at 1002 CC: [id number] DICTATION DATE: 08/12/19838 DATABASE SUPPORT: 08/12/19908 ADM IN [facility] [address] [place] [address]
[2019-08-13 11:36] VITALS: BP 90/46
[2019-08-13 16:04] VITALS: BP 123/63
--- NOTE | 2019-08-13 16:46 | NUR ---
PROVIDED PT WITH A CUP OF ICE. PT ASKING WHEN HER DISCHARGE PAPERS WILL BE READY, INFORMED PT THAT DR. SINCLAIR WANTS TO KEEP HER ANOTHER NIGHT BECAUSE HER BP HAS BEEN RUNNING LOW. PT VERBALIZED UNDERSTANDING, DENIES ANY OTHER NEEDS AT THIS TIME. CALL LIGHT IN REACH, NAD NOTED, WILL CONTINUE TO MONITOR.
--- NOTE | 2019-08-13 19:25 | NUR ---
RECEIVED BEDSIDE REPORT. PATIENT IS ALERT AND ORIENTED, RESTING COMFORTABLY IN BED. RESPIRATIONS ARE EVEN AND UNLABORED. NO S/S OF DISTRESS. NO C/O PAIN. CALL LIGHT WITHIN REACH. WILL CPOC. NEEDS MET
[2019-08-13 20:15] VITALS: BP 134/71
[2019-08-14 00:30] VITALS: BP 120/55
[2019-08-14 04:30] VITALS: BP 147/82
[2019-08-14 05:22] LABS: BASOPHILS 0.2 % (0-2); EOSINOPHILS 0.8 % (0-7); HEMATOCRIT 36.3 % (36.0-48.0); HEMOGLOBIN 11.5 g/dL (12-16); IMMATURE GRANULOCYTES 0.4 % (0-5); LYMPHOCYTES 25.9 % (15-50); MCH 27.6 pg (26.0-34.0); MCHC 31.7 g/dL (31.0-37.0); MCV 87.3 fL (80.0-100.0); MEAN PLATELET VOLUME 10.6 fL (7.4-10.4); MONOCYTES 9.2 % (2-11); NEUTROPHILS 63.5 % (40-80); PLATELET COUNT 221 10x3/uL (130-400); RBC 4.16 10x6/uL (4.00-5.40); RDW 15.6 % (11.5-14.5)
[2019-08-14 05:33] LABS: WBC 11.6 10x3/uL (4.8-10.8)
[2019-08-14 05:37] LABS: ANION GAP 8.6 mmol/L (8-16); CALCIUM 8.2 mg/dL (8.5-10.1); CARBON DIOXIDE 32.2 mmol/L (21.0-32.0); CREATININE - SERUM 0.9 mg/dL (0.6-1.3); POTASSIUM - SERUM 3.8 mmol/L (3.5-5.1)
[2019-08-14 08:31] VITALS: BP 131/63
--- NOTE | 2019-08-14 09:10 | MORECARE ---
CASE MANAGEMENT DISCHARGE SUMMARY PATIENT: KRISTI TORRES UNIT: [id number] ADM DATE: 08/12/19 AGE: 74 : 45 SEX: F ROOM/BED: D.0609 AUTHOR: JOSELITO AGRAWAL PHYSICIAN: REFERRING PHYSICIAN: LILI BLEVINS MD DATE OF SERVICE: 08/14/19 Discharge Plan Patient Name: KRISTI [facility]ORRES [facility] [facility] 1945 Planned Disposition: Home Anticipated Discharge Date: 08/14/19 Discharge Date: Expected LOS: 2 Initial Reviewer: [email or web address] Initial Review Date: 08/14/2019 Generated: 08/14/19 10:09 am Coverage Notice Reviewer: [id number] Tee Perez Notice Issued Date-Time: 08/12/2019 16:53 Notice Type: Medicare Outpatient Observation Notice Notice Delivered To: Patient Relationship to Patient: Day Care Provider Name: Delivery Method: HAND - Hand Delivered Aranza Days: Prior Verbal Notification: Recipient Understood Notice: Yes Recipient Signature: Yes Med Rec Note Co-signed by Attending: Coverage Notice Comment: Patient Name: KRISTI TORRES Page [phone] at 0910 All edits/amendments must be made on the electronic document DICTATION DATE: 08/14/19908 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
--- NOTE | 2019-08-14 10:39 | NUR ---
IV AND TELEMETRY DCD. DC PLANS GIVEN. UNDERSTANDING VOICED. ESCORTED TO CAR BY W/C.
== END 2019-08-14 10:43 | disposition home or self-care (01) ==
LOC: D.ER 23:50 → OBSVTIME 08-12 01:53 → D.M2 08-12 01:53
PROVIDERS: Family Medicine; Internal Medicine Interventional Cardiology; ADMIT Family Medicine; ATTEND Family Medicine
DX: I25.10 Atherosclerotic heart disease of native coronary artery without angina pectoris (principal); J44.9 Chronic obstructive pulmonary disease, unspecified; R07.9 Chest pain, unspecified; I24.9 Acute ischemic heart disease, unspecified; I10 Essential (primary) hypertension; E78.5 Hyperlipidemia, unspecified
CPT/HCPCS: 93458; C9600

== ENCOUNTER → 2020-01-28 20:43 | Outpatient (CLI) | payer MEDICARE, OTHER ==
[2019-08-12 07:51] VITALS: BMI 30.6
[~2020-01-28 20:43] MED LIST changes: +MICARDIS20 MG PO
[2020-01-28 23:16] LABS: CHOL - HDL RATIO 2.5 ratio (2.3-4.1)
== END | disposition home or self-care (01) ==
LOC: D.LABREF 20:43
PROVIDERS: ATTEND Internal Medicine Cardiovascular Disease
DX: E78.5 Hyperlipidemia, unspecified (principal)

== ENCOUNTER 2020-11-15 11:06 | Day surgery (SDC) | payer MEDICARE, OTHER ==
[2020-11-15 11:45] LABS: HEMATOCRIT 41.6 % (36.0-48.0); HEMOGLOBIN 13.2 g/dL (12-16); MCH 28.1 pg (26.0-34.0); MCHC 31.7 g/dL (31.0-37.0); MCV 88.5 fL (80.0-100.0); MEAN PLATELET VOLUME 11.3 fL (7.4-10.4); RBC 4.7 10x6/uL (4.00-5.40); RDW 14.6 % (11.5-14.5); WBC 7.3 10x3/uL (4.8-10.8)
[2020-11-15] MEDS ORDERED: SYNTHROID112 MCG PO (12:12)
== END 2020-11-15 14:55 | disposition home or self-care (01) ==
LOC: D.OPS 11:06
PROVIDERS: Internal Medicine Gastroenterology
DX: Z12.11 Encounter for screening for malignant neoplasm of colon (principal); Z86.010 Personal history of colon polyps; K63.5 Polyp of colon

== ENCOUNTER → 2021-01-19 19:37 | Outpatient (CLI) | payer MEDICARE, OTHER ==
[2020-11-15 12:12] VITALS: BMI 31.9
[~2021-01-19 19:37] MED LIST changes: +SYNTHROID112 MCG PO
[2021-01-19 20:16] LABS: CHOL - HDL RATIO 2.7 ratio (2.3-4.1); LDL-HDL RATIO 1.1 ratio (1.5-3.5)
== END | disposition home or self-care (01) ==
LOC: D.LABREF 19:37
PROVIDERS: ATTEND Nurse Practitioner
DX: E78.5 Hyperlipidemia, unspecified (principal)

== ENCOUNTER → 2021-02-08 07:54 | Outpatient (CLI) | payer MEDICARE, OTHER ==
[2020-11-15 12:12] VITALS: BMI 31.9
== END | disposition home or self-care (01) ==
LOC: D.HCCARDIO 07:54
PROVIDERS: ATTEND Internal Medicine Cardiovascular Disease
DX: I25.10 Atherosclerotic heart disease of native coronary artery without angina pectoris (principal)